=== PATIENT | male | born 1950 | race Caucasian/White ===

== ENCOUNTER → 2016-07-15 | Outpatient (CLI) | payer MEDICARE | LOC: RAD 15:55 | PROVIDERS: ATTEND Family Medicine | DX: S22.31XA Fracture of one rib, right side, initial encounter for closed fracture (principal); X58.XXXA Exposure to other specified factors, initial encounter ==

== ENCOUNTER → 2016-08-24 | Outpatient (CLI) | payer MEDICARE ==
--- NOTE | 2016-08-27 16:06 | EEG PRO FEE REPORT ---
EEG INTERPRETATION PATIENT NAME: ARY YANEZ ROOM#: ORDER#: [id number] DATE OF STUDY: 08/26/2016 : 1950 REFERRING MD: CAPRICE ROMAN M.D. DIAGNOSIS: Convulsions REPORT This is a 16 channel EEG recording with a channel of EKG done during wakefulness, photic stimulation, and early stages of sleep. Moderate artifact seen from eye movement, muscle movement and EKG artifact. The background activity is 8-9 cycles per second, well formed and reactive alpha best seen in the posterior electrodes. Beta 18-22 cycles per second, intermittent, nonlocalized or sustained slower forms seen. Photic stimulation was administered and did not alter the tracing significantly. In early stages of sleep more generalized slowing noted. There were no definite epileptic form discharges. IMPRESSION This EEG is within normal limits although moderate artifact seen. INTERPRETING PHYSICIAN: CAROLYN HANSEN M.D. /: MTEFIDALMIS TT: [id number] ID: [id number] /: [id number] TD: [id number] JOB: [id number] cc:Anyi ELLER M.D. >
== END ==
LOC: NEURO 12:28
PROVIDERS: ATTEND Pediatrics
DX: R56.9 Unspecified convulsions (principal)
CPT/HCPCS: 95819

== ENCOUNTER → 2017-06-30 | Outpatient (CLI) | payer MEDICARE ==
--- NOTE | 2017-06-30 15:50 | RADIOLOGY REPORT (SQ) ---
EXAM DESCRIPTION: CT ABD/PELVIS COMBO COMPLETED DATE/TIME: 06/30/2017 3:31 pm REASON FOR STUDY: MICROSCOPIC HEMATURIA R31.29 OTHER MICROSCOPIC HEMATURIA COMPARISON: None. TECHNIQUE: CT scan of the abdomen and pelvis performed with and without intravenous contrast, and wi thout oral contrast. Contrasted imaging performed helical scanning technique and dynamic intravenous contrast injection. Images reviewed with lung, soft tissue, and bone windows. Reconstructed coronal a nd sagittal MPR images reviewed. Delayed images for evaluation of the urinary system also acquired. A ll images stored on PACS. All CT scanners at this facility use dose modulation, iterative reconstruction, and/or weight based d osing when appropriate to reduce radiation dose to as low as reasonably achievable (ALARA). [facility]: Dose Right [facility]: CareDose [facility]: Dose Right [facility]: Teradose 4D [facility]: Bloglovin CONTRAST TYPE AND DOSE: contrast/concentration: Isovue 370.00 mg/ml; Total Contrast Delivered: 80.0 ml; Total Saline Delivered: 55.0 ml RENAL FUNCTION: Creatinine 0.8 RADIATION DOSE: CT Rad equipment meets quality standard of care and radiation dose reduction techniq ues were employed. CTDIvol: 24.0 - 27.6 mGy. DLP: 3979 mGy-cm. . LIMITATIONS: Artifact from right hip arthroplasty. FINDINGS: NON-CONTRASTED IMAGING: No significant renal or bladder calcifications. No other significa nt organ calcifications. POST-CONTRASTED IMAGING: LOWER CHEST: Cardiomegaly. LIVER: Benign cysts. SPLEEN: Normal size. No focal lesions. PANCREAS: No masses. No significant calcifications. No adjacent inflammation or peripancreatic fluid collections. Pancreatic duct not dilated. GALLBLADDER: Surgically absent. ADRENAL GLANDS: No significant masses or asymmetry. RIGHT KIDNEY AND URETER: No solid masses. No significant calcifications. No hydronephrosis or hyd roureter. LEFT KIDNEY AND URETER: No solid masses. No significant calcifications. No hydronephrosis or hydr oureter. AORTA AND VESSELS: No aneurysm. No dissection. Renal arteries, SMA, celiac without stenosis. RETROPERITONEUM: No retroperitoneal adenopathy, hemorrhage or masses. BOWEL AND PERITONEAL CAVITY: Sigmoid diverticulosis. No ascites or free air. APPENDIX: Normal. PELVIS: No mass. No free fluid. Normal bladder. ABDOMINAL WALL: No masses. No hernias. BONES: No acute findings. OTHER: No other significant finding. IMPRESSION: No evidence of urinary tract stones or mass. No acute findings. TECHNICAL DOCUMENTATION: JOB ID: [id number] Quality ID # [id number]: Final reports with documentation of one or more dose reduction techniques (e.g., Au tomated exposure control, adjustment of the mA and/or kV according to patient size, use of iterative reconstruction technique) 2010 [employer]- All Rights Reserved Reading location - IP/workstation name: [email or web address]
== END ==
LOC: RAD 14:30
PROVIDERS: ATTEND Urology
DX: R31.29 Other microscopic hematuria (principal)
CPT/HCPCS: 74178; 82565

== ENCOUNTER 2018-03-08 19:44 | Inpatient (IN) | payer MEDICARE ==
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
[2018-03-08] MEDS ORDERED: MORPHINE SULFATE 10 MG/ML INJ IV ONE ×2 (21:25→23:47)
[2018-03-08] MEDS ORDERED: NORMAL SALINE 1000 ML 1,000 ML IV ONE (21:25)
[2018-03-08] MEDS ORDERED: LINEZOLID 600 MG/300 ML RTUPB IV ONE (21:42)
[2018-03-08 22:12] LABS: ABSOLUTE EOSINOPHILS # (AUTO) 0.2 10^3/uL (0.0-0.6); ABSOLUTE LYMPHOCYTES (AUTO) 2.2 10^3/uL (0.5-4.7); ABSOLUTE MONOCYTES (AUTO) 0.7 10^3/uL (0.1-1.4); BASOPHILS % (AUTO) 0.4 % (0-2); EOSINOPHILS % (AUTO) 2.1 % (0-6); HEMATOCRIT 31.7 % (37.9-51.0); HEMOGLOBIN 10.2 g/dL (13.5-17.0); LYMPHOCYTES % (AUTO) 19.5 % (13-45); MEAN CORPUSCULAR HEMOGLOBIN 23.1 pg (27.0-33.4); MEAN CORPUSCULAR HGB CONC 32.3 g/dL (32.0-36.0); MEAN CORPUSCULAR VOLUME 72 fl (80-97); MONOCYTES % (AUTO) 6.6 % (3-13); PLATELET COUNT 492 10^3/uL (150-450); RED BLOOD COUNT 4.42 10^6/uL (4.35-5.55); RED CELL DISTRIBUTION WIDTH 17.7 % (11.5-14.0); SEGMENTED NEUTROPHILS % (AUTO) 71.4 % (42-78); TOTAL CELLS COUNTED % (AUTO) 100 %; WHITE BLOOD COUNT 11.3 10^3/uL (4.0-10.5)
[2018-03-08 22:30] LABS: ALANINE AMINOTRANSFERASE 31 U/L (21-72); ALBUMIN 4.2 g/dL (3.5-5.0); ALKALINE PHOSPHATASE 111 U/L (38-126); ANION GAP 13 (5-19); ASPARTATE AMINO TRANSFERASE 26 U/L (17-59); BILIRUBIN,DIRECT 0.2 mg/dL (0.0-0.4); BILIRUBIN,TOTAL 0.2 mg/dL (0.2-1.3); BLOOD UREA NITROGEN 10 mg/dL (7-20); CARBON DIOXIDE 28 mmol/L (22-30); CHLORIDE 101 mmol/L (98-107); CREATINE KINASE 128 U/L (55-170); GLUCOSE 99 mg/dL (75-110); POTASSIUM 4.9 mmol/L (3.6-5.0); SODIUM 141.5 mmol/L (137-145); TOTAL PROTEIN 7.6 g/dL (6.3-8.2)
--- NOTE | 2018-03-08 22:36 | RADIOLOGY REPORT (SQ) ---
EXAM DESCRIPTION: XR KNEE 1-2 VIEWS COMPLETED DATE/TME: 03/08/2018 21:25 CLINICAL HISTORY: 68 years Male, Fall COMPARISON: None. Findings: Moderate left knee effusion. Atherosclerosis. Bones, joints, and soft tissues of the LEFT XR KNEE 2 VIEWS appear otherwise intact. IMPRESSION: Moderate left knee effusion.
--- NOTE | 2018-03-08 22:39 | RADIOLOGY REPORT (SQ) ---
EXAM DESCRIPTION: XR KNEE 1-2 VIEWS COMPLETED DATE/TME: 03/08/2018 21:25 CLINICAL HISTORY: 68 years Male, Fall COMPARISON: None. Findings: Moderate right knee effusion. 1.1 cm loose body of the posterior knee joint. Atherosclerosis. Bones, joints, and soft tissues of the RIGHT XR KNEE 2 VIEWS appear otherwise intact. IMPRESSION: Moderate right knee effusion. 1.1 cm loose body of the posterior knee joint.
[2018-03-09] MEDS ORDERED: KETOROLAC TROMETHAMINE INJ/PF 30 MG/1 ML SDV IV ONE (00:36)
[2018-03-09] MEDS ORDERED: MAG HYDROX/AL HYDROX/SIMETH SUSP 30 ML UDCUP PO PRN (03:08)
[2018-03-09] MEDS ORDERED: ACETAMINOPHEN 325 MG TABLET PO PRN (03:08)
[2018-03-09] MEDS ORDERED: IPRATROPIUM/ALBUTEROL 0.5-2.5 MG/3 ML AMPUL NEB PRN (03:08)
[2018-03-09] MEDS ORDERED: NORMAL SALINE 1000 ML 1,000 ML IV PRN (03:15)
[2018-03-09] MEDS: OXYCODONE-ACETAMINOPHEN 5-325 MG TABLET PO PRN ×5 (04:48→23:36)
[2018-03-09] MEDS: KETOROLAC TROMETHAMINE INJ/PF 30 MG/1 ML SDV IV PRN ×3 (06:49→22:41)
[2018-03-09 06:55] LABS: ABSOLUTE BASOPHILS # (AUTO) 0.1 10^3/uL (0.0-0.2); ABSOLUTE EOSINOPHILS # (AUTO) 0.2 10^3/uL (0.0-0.6); ABSOLUTE LYMPHOCYTES (AUTO) 1.9 10^3/uL (0.5-4.7); ABSOLUTE MONOCYTES (AUTO) 0.9 10^3/uL (0.1-1.4); ABSOLUTE NEUT (AUTO) 6.4 10^3/uL (1.7-8.2); BASOPHILS % (AUTO) 0.7 % (0-2); EOSINOPHILS % (AUTO) 2.3 % (0-6); HEMATOCRIT 29.3 % (37.9-51.0); HEMOGLOBIN 9.4 g/dL (13.5-17.0); MEAN CORPUSCULAR HEMOGLOBIN 22.9 pg (27.0-33.4); MEAN CORPUSCULAR HGB CONC 32.2 g/dL (32.0-36.0); MEAN CORPUSCULAR VOLUME 71 fl (80-97); MONOCYTES % (AUTO) 9.3 % (3-13); PLATELET COUNT 437 10^3/uL (150-450); RED CELL DISTRIBUTION WIDTH 18.3 % (11.5-14.0); SEGMENTED NEUTROPHILS % (AUTO) 67.7 % (42-78); TOTAL CELLS COUNTED % (AUTO) 100 %; WHITE BLOOD COUNT 9.5 10^3/uL (4.0-10.5)
[2018-03-09] MEDS: HEPARIN SOD (PORCINE) 5,000 UNIT/ML 1 ML SYRINGE SUBCUT SCH ×3 (07:00→22:41)
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
[2018-03-09] MEDS: IPRATROPIUM/ALBUTEROL 0.5-2.5 MG/3 ML AMPUL NEB SCH ×2 (07:45→20:45)
--- NOTE | 2018-03-09 09:35 | EKG REPORT ---
SEVERITY:- NORMAL ECG - SINUS RHYTHM : Confirmed by: Adonay Anaya 09-Mar-2018 09:33:29
--- NOTE | 2018-03-09 10:00 | XCELERA REPORT ---
[address] [address] Lower Extremity Venous Evaluation Procedure: Color flow and duplex imaging of the veins of the right lower extremity as well as the left Common Femoral vein. Right Sided Venous Evaluation Subcutaneous lucencies noted. Normal vessel filling wall to wall, compression and augmentation as well as Colour flow down to the infrageniculate veins. Left Sided Venous Evaluation The left common femoral vein is fully compressible. Spontaneous and phasic flow is present in the left common femoral vein. Interpretation Summary No duplex evidence of DVT or obstruction in the right lower extremity nor in the left Common Femoral vein. Subcutaneous edema noted on the right leg. Name: ARY YANEZ Age: 68 yrs Gender: Male : 1950 Patient Status: Emergency Patient Location: ER Study Date: 03/08/2018 09:37 PM Reason For Study: Right leg swelling Ordering Physician: MEENU MANJARREZ Performed By: Torie Manuel : MEENU MANJARREZ > Joel Baires
[2018-03-09] MEDS: TIOTROPIUM BROMIDE DPI 5 CAP/KIT (18 MCG/CAP) IH SCH (11:08)
[2018-03-09] MEDS: FERROUS SULFATE 325 MG TABLET PO SCH ×2 (11:09→18:45)
[2018-03-09] MEDS: LINEZOLID 600 MG/300 ML RTUPB IV SCH ×2 (11:11→22:42)
[2018-03-09] MEDS: LAMOTRIGINE 100 MG TABLET PO SCH ×2 (11:24→18:44)
--- NOTE | 2018-03-09 17:06 | XCELERA REPORT ---
[address] [address] Lower Extremity Arterial Evaluation Name: ARY YANEZ Age: 68 yrs Gender: Male : 1950 Patient Status: [facility]: 03/09/2018 01:35 PM Procedure: A color flow and duplex scan of the lower extremity arteries was performed on the right with velocity and waveform anaylsis. 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 Velocities normal, except for step up in Peak systolic velocity suggesting less than 50% stenosis at the Proximal Femoral and Popliteal. Biphasic Posterior tibial and Dorsalis Pedis Tibial with normal velocity. Mild spectral broadening noted, throughout. Anterior Tibial artery not well seen due to edema. Ankle Brachial index not done due to presence of wound.. Left Side Arterial Evaluation Isolated check of Dorsalis Pedis shows Triphasic waveform, normal velocity. Interpretation Summary Mild hemodynamically significant lesions in the right lower extremity only, on duplex imaging, at rest. : CHANELL RAYMUNDO > Joel Bairse
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
[2018-03-09] MEDS ORDERED: TAMSULOSIN HCL 0.4 MG CAP.SR.24H PO SCH ×2 (22:00)
[2018-03-09] MEDS: TAMSULOSIN HCL 0.4 MG CAP.SR.24H PO SCH (22:41)
[2018-03-09] MEDS: AMLODIPINE BESYLATE 10 MG TABLET PO SCH (22:41)
[2018-03-09] MEDS: ATORVASTATIN CALCIUM 10 MG TABLET PO SCH (22:41)
[2018-03-10] MEDS: OXYCODONE-ACETAMINOPHEN 5-325 MG TABLET PO PRN ×4 (03:39→20:08)
[2018-03-10] MEDS: HEPARIN SOD (PORCINE) 5,000 UNIT/ML 1 ML SYRINGE SUBCUT SCH ×3 (05:31→23:02)
[2018-03-10] MEDS: KETOROLAC TROMETHAMINE INJ/PF 30 MG/1 ML SDV IV PRN ×2 (05:31→15:20)
[2018-03-10 05:33] LABS: ABSOLUTE BASOPHILS # (AUTO) 0.1 10^3/uL (0.0-0.2); ABSOLUTE EOSINOPHILS # (AUTO) 0.3 10^3/uL (0.0-0.6); ABSOLUTE LYMPHOCYTES (AUTO) 2.6 10^3/uL (0.5-4.7); ABSOLUTE MONOCYTES (AUTO) 0.7 10^3/uL (0.1-1.4); ABSOLUTE NEUT (AUTO) 4.7 10^3/uL (1.7-8.2); BASOPHILS % (AUTO) 0.7 % (0-2); HEMATOCRIT 28.4 % (37.9-51.0); HEMOGLOBIN 9.2 g/dL (13.5-17.0); LYMPHOCYTES % (AUTO) 30.6 % (13-45); MEAN CORPUSCULAR HEMOGLOBIN 23.2 pg (27.0-33.4); MEAN CORPUSCULAR HGB CONC 32.5 g/dL (32.0-36.0); MEAN CORPUSCULAR VOLUME 71 fl (80-97); MONOCYTES % (AUTO) 8.2 % (3-13); PLATELET COUNT 418 10^3/uL (150-450); RED BLOOD COUNT 3.97 10^6/uL (4.35-5.55); RED CELL DISTRIBUTION WIDTH 17.9 % (11.5-14.0); SEGMENTED NEUTROPHILS % (AUTO) 56.5 % (42-78); TOTAL CELLS COUNTED % (AUTO) 100 %; WHITE BLOOD COUNT 8.4 10^3/uL (4.0-10.5)
[2018-03-10 05:54] LABS: ANION GAP 12 (5-19); BLOOD UREA NITROGEN 13 mg/dL (7-20); CARBON DIOXIDE 27 mmol/L (22-30); CHLORIDE 102 mmol/L (98-107); GLUCOSE 120 mg/dL (75-110); POTASSIUM 4.4 mmol/L (3.6-5.0); SODIUM 141.3 mmol/L (137-145)
[2018-03-10] MEDS: IPRATROPIUM/ALBUTEROL 0.5-2.5 MG/3 ML AMPUL NEB SCH ×2 (08:08→20:37)
[2018-03-10] MEDS ORDERED: HYDROMORPHONE HCL INJ/PF 2 MG/ML AMPULE IV PRN ×2 (08:19→09:56)
[2018-03-10] MEDS: LINEZOLID 600 MG/300 ML RTUPB IV SCH ×2 (09:37→23:02)
[2018-03-10] MEDS: LAMOTRIGINE 100 MG TABLET PO SCH ×2 (09:37→17:05)
[2018-03-10] MEDS: FERROUS SULFATE 325 MG TABLET PO SCH ×2 (09:37→17:05)
[2018-03-10] MEDS: TIOTROPIUM BROMIDE DPI 5 CAP/KIT (18 MCG/CAP) IH SCH (09:38)
[2018-03-10] MEDS: LIDOCAINE 5% (700 MG) TRANSDERMAL ADH..PATCH TP SCH (15:20)
[2018-03-10] MEDS: HYDROMORPHONE HCL INJ/PF 2 MG/ML AMPULE IV PRN ×2 (16:57→23:55)
--- NOTE | 2018-03-10 17:27 | PDOC PROGRESS REPORT ---
Subjective Progress Note for:: 03/10/18 Subjective:: Patient has been given some IV drugs and right now is a bit confused. Was attempted to go to get the MRI but has significant pain so patient being premedicated and will be taken downstairs for MRI in the next hour Reason For Visit: RIGHT LEG CELLULITIS RIGHT LOWER EXTREMITY Physical Exam Vital Signs: Temp Pulse Resp BP Pulse Ox 36.7 C 81 20 115/72 92 03/10/18 13:24 03/10/18 13:24 03/10/18 13:24 03/10/18 13:24 03/10/18 13:24 Intake & Output 03/09/18 03/10/18 03/11/18 06:59 06:59 06:59 Intake Total 1472 300 Output Total 900 Balance 572 300 Weight 111.9 kg Adult Front & Back Image: 1 - Patient has wrapping of his right lower extremity for his chronic venous ulcer with serous drainage. Continues to have pain with attempted range of motion of the knee and internal/external rotation of the knee. He has global tenderness about the medial anterior and lateral aspect of the knee. Unable to do any ligament exam due to the amount of pain. Continues to have significant swelling may be consistent with an effusion. Slight warmth to it with no erythema of the knee. Results Laboratory Results: 03/10/18 04:23 03/10/18 04:23 03/10/18 03/10/18 04:23 04:23 WBC 8.4 RBC 3.97 L Hgb 9.2 L Hct 28.4 L MCV 71 L MCH 23.2 L MCHC 32.5 RDW 17.9 H Plt Count 418 Seg Neutrophils % 56.5 Lymphocytes % 30.6 Monocytes % 8.2 Eosinophils % 4.0 Basophils % 0.7 Absolute Neutrophils 4.7 Absolute Lymphocytes 2.6 Absolute Monocytes 0.7 Absolute Eosinophils 0.3 Absolute Basophils 0.1 Sodium 141.3 Potassium 4.4 Chloride 102 Carbon Dioxide 27 Anion Gap 12 BUN 13 Creatinine 0.75 Est GFR ( Amer) > 60 Est GFR (Non-Af Amer) > 60 Glucose 120 H Calcium 9.0 Impressions: Knee X-Ray 03/08/18 21:25 IMPRESSION: Moderate right knee effusion. 1.1 cm loose body of the posterior knee joint. Assessment & Plan - Diagnosis (1) Loose body in knee, right knee Is this a current diagnosis for this admission?: Yes Plan: 68-year-old gentleman with mechanical fall with significant pain and swelling of the right knee. Still awaiting pacing any obtaining an MRI today to further investigate. There is no fractures on x-rays. May consider aspiration of the right knee depending what the MRI reports show.
--- NOTE | 2018-03-10 18:55 | RADIOLOGY REPORT (SQ) ---
MR LOWER EXTREMITY JOINT WITHOUT IV CONTRAST HISTORY: Intractable right knee pain and swelling s/p fall COMPARISON: None. TECHNIQUE: Multiplanar, multisequence MR imaging of the right knee was performed without the administration of intravenous gadolinium. FINDINGS: The anterior and posterior cruciate ligaments are intact, as are the medial and lateral collateral ligament complexes and the insertion of the popliteus tendon. There is no meniscal tear. The capsular attachments are intact. The articular cartilage over the tibiofemoral and patellofemoral joints are maintained, without prominent fibrillation or fissuring. The extensor mechanism is maintained. The suprapatellar and infrapatellar fat pads are normal. There are multiple T1 hypointense fracture lines within the lateral tibial plateau extending to the lateral aspect of the medial tibial plateau, consistent with acute nondisplaced and moderately comminuted fracture. There is an additional nondisplaced fracture of the fibular head. There is also abnormal signal in the lateral femoral condyle without a definite fracture line seen, suggesting a bone marrow contusion. A large lipohemarthrosis is present. There is also diffuse subcutaneous edema surrounding the right knee. IMPRESSION: 1. Acute nondisplaced, comminuted fracture of the lateral tibial plateau extending to the medial tibial plateau. 2. Acute nondisplaced fracture of the fibular head. 3. Large lipohemarthrosis. 4. No meniscal tear or ligamentous injury.
--- NOTE | 2018-03-10 20:34 | PDOC PROGRESS REPORT ---
Subjective Progress Note for:: 03/10/18 Subjective:: MS. YANEZ is a 68 year old male with a history of chronic right leg ulcer with venous stasis, chronic back and hip pain who complains of increasing right lower extremity pain and sustained a fall at home. No acute event overnight. Patient says that he continues to have right knee and right leg pain which was not relieved by oxygen he is on Toradol. He did get some relief from IV Dilaudid patient does have chronic opiate dependence. Reason For Visit: RIGHT LEG CELLULITIS RIGHT LOWER EXTREMITY Physical Exam Vital Signs: Temp Pulse Resp BP Pulse Ox 98.3 F 81 14 128/66 H 93 03/10/18 18:00 03/10/18 18:00 03/10/18 18:00 03/10/18 18:00 03/10/18 18:00 Intake & Output 03/09/18 03/10/18 03/11/18 06:59 06:59 06:59 Intake Total 1472 921 Output Total 900 250 Balance 572 671 Weight 246 lb 11.156 oz General appearance: PRESENT: no acute distress, obese Eye exam: PRESENT: conjunctiva pink, EOMI, PERRLA. ABSENT: scleral icterus Ear exam: PRESENT: normal external ear exam Mouth exam: PRESENT: moist, tongue midline Neck exam: ABSENT: carotid bruit, JVD, lymphadenopathy, thyromegaly Respiratory exam: PRESENT: clear to auscultation fitz. ABSENT: rales, rhonchi, wheezes Cardiovascular exam: PRESENT: RRR. ABSENT: diastolic murmur, rubs, systolic murmur Pulses: PRESENT: normal dorsalis pedis pul GI/Abdominal exam: PRESENT: normal bowel sounds, soft. ABSENT: distended, guarding, mass, organolmegaly, rebound, tenderness Rectal exam: PRESENT: deferred Extremities exam: PRESENT: other - Note of stage II chronic right leg ulcer with weeping Neurological exam: PRESENT: alert, awake, oriented to person, oriented to place , oriented to time, oriented to situation, CN II-XII grossly intact. ABSENT: motor sensory deficit Psychiatric exam: PRESENT: appropriate affect, normal mood. ABSENT: homicidal ideation, suicidal ideation Results Laboratory Results: 03/10/18 04:23 03/10/18 04:23 03/10/18 03/10/18 04:23 04:23 WBC 8.4 RBC 3.97 L Hgb 9.2 L Hct 28.4 L MCV 71 L MCH 23.2 L MCHC 32.5 RDW 17.9 H Plt Count 418 Seg Neutrophils % 56.5 Lymphocytes % 30.6 Monocytes % 8.2 Eosinophils % 4.0 Basophils % 0.7 Absolute Neutrophils 4.7 Absolute Lymphocytes 2.6 Absolute Monocytes 0.7 Absolute Eosinophils 0.3 Absolute Basophils 0.1 Sodium 141.3 Potassium 4.4 Chloride 102 Carbon Dioxide 27 Anion Gap 12 BUN 13 Creatinine 0.75 Est GFR ( Amer) > 60 Est GFR (Non-Af Amer) > 60 Glucose 120 H Calcium 9.0 Impressions: Knee X-Ray 03/08/18 21:25 IMPRESSION: Moderate right knee effusion. 1.1 cm loose body of the posterior knee joint. Lower Extremity MRI 03/10/18 00:00 IMPRESSION: 1. Acute nondisplaced, comminuted fracture of the lateral tibial plateau extending to the medial tibial plateau. 2. Acute nondisplaced fracture of the fibular head. 3. Large lipohemarthrosis. 4. No meniscal tear or ligamentous injury. Assessment & Plan - Diagnosis (1) Cellulitis of right leg Is this a current diagnosis for this admission?: Yes Plan: Ultrasound duplex are negative for DVT. On daptomycin. Will (2) Right knee pain Is this a current diagnosis for this admission?: Yes Plan: X-rays did not show fracture but does show right knee effusion. Orthopedics was consulted and MRI has been ordered.
[2018-03-10] MEDS: TAMSULOSIN HCL 0.4 MG CAP.SR.24H PO SCH (23:02)
[2018-03-10] MEDS: AMLODIPINE BESYLATE 10 MG TABLET PO SCH (23:02)
[2018-03-10] MEDS: ATORVASTATIN CALCIUM 10 MG TABLET PO SCH (23:03)
[2018-03-11] MEDS: OXYCODONE-ACETAMINOPHEN 5-325 MG TABLET PO PRN ×4 (02:09→21:49)
[2018-03-11] MEDS: HEPARIN SOD (PORCINE) 5,000 UNIT/ML 1 ML SYRINGE SUBCUT SCH ×3 (05:36→21:49)
[2018-03-11] MEDS: HYDROMORPHONE HCL INJ/PF 2 MG/ML AMPULE IV PRN ×3 (05:44→19:38)
[2018-03-11] MEDS: IPRATROPIUM/ALBUTEROL 0.5-2.5 MG/3 ML AMPUL NEB SCH ×2 (07:50→19:27)
[2018-03-11] MEDS: KETOROLAC TROMETHAMINE INJ/PF 30 MG/1 ML SDV IV PRN ×2 (07:53→15:44)
[2018-03-11] MEDS: FERROUS SULFATE 325 MG TABLET PO SCH ×2 (09:11→17:08)
[2018-03-11] MEDS: LAMOTRIGINE 100 MG TABLET PO SCH ×2 (09:11→17:08)
[2018-03-11] MEDS: LIDOCAINE 5% (700 MG) TRANSDERMAL ADH..PATCH TP SCH (09:11)
[2018-03-11] MEDS: LINEZOLID 600 MG/300 ML RTUPB IV SCH ×2 (09:11→21:49)
[2018-03-11] MEDS: TIOTROPIUM BROMIDE DPI 5 CAP/KIT (18 MCG/CAP) IH SCH (09:12)
--- NOTE | 2018-03-11 17:38 | PDOC PROGRESS REPORT ---
Subjective Progress Note for:: 03/11/18 Subjective:: Patient continues to complain of pain in his right boot. Has not seen significant improvement with current narcotics. Once again date of injury was 03/08/18 when he sustained a fall onto his bilateral knees since then he has been unable to weight-bear. Has significant pain with motion. Pain 10/10. Reason For Visit: RIGHT LEG CELLULITIS RIGHT LOWER EXTREMITY Physical Exam Vital Signs: Temp Pulse Resp BP Pulse Ox 98.5 F 77 14 120/66 92 03/11/18 16:19 03/11/18 16:19 03/11/18 16:19 03/11/18 16:19 03/11/18 16:19 Intake & Output 03/10/18 03/11/18 03/12/18 06:59 06:59 06:59 Intake Total 1472 1221 566 Output Total 900 250 250 Balance 572 971 316 Weight 111.9 kg 111.9 kg Musculoskeletal exam: PRESENT: other - Right knee: Tenderness to palpation of the medial lateral tibial plateau. No suprapatellar tenderness. Pain with any attempted range of motion. Compartments soft and compressible no sign of compartment syndrome. Intact plantar flexion/dorsiflexion. Erythema with stasis dermatitis and chronic wound along the lateral aspect of the distal lower extremity. Cap refill less than 2 seconds. Results Laboratory Results: 03/10/18 04:23 03/10/18 04:23 Impressions: Knee X-Ray 03/08/18 21:25 IMPRESSION: Moderate right knee effusion. 1.1 cm loose body of the posterior knee joint. Lower Extremity MRI 03/10/18 00:00 IMPRESSION: 1. Acute nondisplaced, comminuted fracture of the lateral tibial plateau extending to the medial tibial plateau. 2. Acute nondisplaced fracture of the fibular head. 3. Large lipohemarthrosis. 4. No meniscal tear or ligamentous injury. Status: Image reviewed by me - I have reviewed patient's MRI which is consistent with nondisplaced lateral and tibial plateau fracture with associated lipohemarthrosis secondary to the fracture. Assessment & Plan - Diagnosis (1) Tibial plateau fracture, right Qualifiers: Encounter type: initial encounter Fracture type: closed Qualified Code(s) : S82.141A - Displaced bicondylar fracture of right tibia, initial encounter for closed fracture Is this a current diagnosis for this admission?: Yes Plan: Patient sustained a nondisplaced tibial plateau fracture. Unfortunately given his chronic wound it does complicate immobilization and ability to ambulate due to concerns of possible skin breakdown and wound issues. After discussing options with the patient and family I feel the best option is likely knee immobilizer when he attempts to get out of bed with careful padding of the bony prominences. I then remove the knee immobilizer when in bed. We will see how he progresses with this. Will likely require penitentiary facility.
--- NOTE | 2018-03-11 18:06 | PDOC PROGRESS REPORT ---
Subjective Progress Note for:: 03/11/18 Subjective:: MS. YANEZ is a 68 year old male with a history of chronic right leg ulcer with venous stasis, chronic back and hip pain who complains of increasing right lower extremity pain and sustained a fall at home. He also complains of increasing redness and weeping on his chronic right leg wound. Initial x-ray imaging did not show fractures breath MRI ordered by orthopedics showed a nondisplaced right fibular head fracture. No acute event overnight. Patient says that he has right knee and right leg pain but this has improved after adjusting his pain regimen. Reason For Visit: RIGHT LEG CELLULITIS RIGHT LOWER EXTREMITY Physical Exam Vital Signs: Temp Pulse Resp BP Pulse Ox 98.5 F 77 14 120/66 92 03/11/18 16:19 03/11/18 16:19 03/11/18 16:19 03/11/18 16:19 03/11/18 16:19 Intake & Output 03/10/18 03/11/18 03/12/18 06:59 06:59 06:59 Intake Total 1472 1221 566 Output Total 900 250 250 Balance 572 971 316 Weight 246 lb 11.156 oz 246 lb 11.156 oz General appearance: PRESENT: no acute distress, obese Eye exam: PRESENT: conjunctiva pink, EOMI, PERRLA. ABSENT: scleral icterus Ear exam: PRESENT: normal external ear exam Mouth exam: PRESENT: moist, tongue midline Neck exam: ABSENT: carotid bruit, JVD, lymphadenopathy, thyromegaly Respiratory exam: PRESENT: clear to auscultation fitz. ABSENT: rales, rhonchi, wheezes Cardiovascular exam: PRESENT: RRR. ABSENT: diastolic murmur, rubs, systolic murmur Pulses: PRESENT: normal dorsalis pedis pul GI/Abdominal exam: PRESENT: normal bowel sounds, soft. ABSENT: distended, guarding, mass, organolmegaly, rebound, tenderness Rectal exam: PRESENT: deferred Extremities exam: PRESENT: other - Note of stage II large chronic right latero- posterior leg ulcer with weeping, no not actively draining discharge on ulcer aside from some weeping but dressing is noted to be soaked with yellowish drainage, there is mild surrounding erythema Neurological exam: PRESENT: alert, awake, oriented to person, oriented to place , oriented to time, oriented to situation, CN II-XII grossly intact. ABSENT: motor sensory deficit Results Laboratory Results: 03/10/18 04:23 03/10/18 04:23 Impressions: Knee X-Ray 03/08/18 21:25 IMPRESSION: Moderate right knee effusion. 1.1 cm loose body of the posterior knee joint. Lower Extremity MRI 03/10/18 00:00 IMPRESSION: 1. Acute nondisplaced, comminuted fracture of the lateral tibial plateau extending to the medial tibial plateau. 2. Acute nondisplaced fracture of the fibular head. 3. Large lipohemarthrosis. 4. No meniscal tear or ligamentous injury. Assessment & Plan - Diagnosis (1) Cellulitis of right leg Is this a current diagnosis for this admission?: Yes Plan: Ultrasound duplex are negative for DVT. Patient was started on daptomycin upon admission due to his allergies to vancomycin, clindamycin, penicillin and sulfa antibiotics. Will consult with ID for further antibiotic recommendations. Will also consult surgery for evaluation of chronic wound. (2) Acute nondisplaced right knee fracture Is this a current diagnosis for this admission?: Yes Plan: MRI did show a nondisplaced acute right fibular head fracture. Orthopedics has evaluated the patient and his recommend doing conservative treatment with the immobilizer. Physical therapy consult. He will likely need inpatient rehab. - Time Time Spent with patient: 15-24 minutes
[2018-03-11] MEDS: ATORVASTATIN CALCIUM 10 MG TABLET PO SCH (21:49)
[2018-03-11] MEDS: TAMSULOSIN HCL 0.4 MG CAP.SR.24H PO SCH (21:49)
[2018-03-11] MEDS: AMLODIPINE BESYLATE 10 MG TABLET PO SCH (21:49)
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
[2018-03-12] MEDS: HYDROMORPHONE HCL INJ/PF 2 MG/ML AMPULE IV PRN ×4 (01:02→20:24)
[2018-03-12] MEDS ORDERED: GUAIFENESIN SYRP 200 MG/10 ML UDC PO ONE (01:30)
[2018-03-12] MEDS ORDERED: FLUTICASONE NASAL SPRAY 50 MCG/SPRY 120 SPRAY/16 GM NASL ONE (01:30)
[2018-03-12] MEDS ORDERED: FLUTICASONE NASAL SPRAY 50 MCG/SPRY 120 SPRAY/16 GM ONE (03:04)
[2018-03-12] MEDS: HEPARIN SOD (PORCINE) 5,000 UNIT/ML 1 ML SYRINGE SUBCUT SCH ×3 (05:23→23:19)
[2018-03-12] MEDS ORDERED: ASPIRIN 81 MG TABLET, CHEWABLE PO ONE (05:46)
--- NOTE | 2018-03-12 06:41 | RADIOLOGY REPORT (SQ) ---
EXAM DESCRIPTION: XR CHEST 1 VIEW COMPLETED DATE/TME: 03/12/2018 00:00 CLINICAL HISTORY: 68 years Male, chest pain COMPARISON: None. NUMBER OF VIEWS/TECHNIQUE: 1/AP FINDINGS: Adequate lung volume, small streaky opacity of the left lung base, small obscuration-effusion of the right costophrenic angle, normal cardiac silhouette, and intact bony thorax. IMPRESSION: Small left basilar pneumonia/atelectasis. Small right effusion/atelectasis.
[2018-03-12 07:19] LABS: CREATINE KINASE MB 1.34 ng/mL (<4.55)
[2018-03-12 07:27] LABS: TROPONIN I < 0.012 ng/mL
[2018-03-12] MEDS: IPRATROPIUM/ALBUTEROL 0.5-2.5 MG/3 ML AMPUL NEB SCH ×2 (07:40→19:16)
[2018-03-12] MEDS: OXYCODONE-ACETAMINOPHEN 5-325 MG TABLET PO PRN ×3 (10:21→23:30)
--- NOTE | 2018-03-12 10:48 | EKG REPORT ---
SEVERITY:- OTHERWISE NORMAL ECG - SINUS ARRHYTHMIA, RATE 70-98 : Confirmed by: Adonay Anaya 12-Mar-2018 10:47:17
[2018-03-12] MEDS: KETOROLAC TROMETHAMINE INJ/PF 30 MG/1 ML SDV IV PRN (10:50)
[2018-03-12] MEDS: GUAIFENESIN SYRP 200 MG/10 ML UDC PO SCH ×2 (11:07→17:47)
[2018-03-12] MEDS: FLUTICASONE NASAL SPRAY 50 MCG/SPRY 120 SPRAY/16 GM NASL SCH (11:08)
[2018-03-12] MEDS: LINEZOLID 600 MG/300 ML RTUPB IV SCH ×2 (11:09→23:19)
[2018-03-12] MEDS: LAMOTRIGINE 100 MG TABLET PO SCH ×2 (11:09→17:47)
[2018-03-12] MEDS: FERROUS SULFATE 325 MG TABLET PO SCH ×2 (11:09→17:47)
[2018-03-12] MEDS: LIDOCAINE 5% (700 MG) TRANSDERMAL ADH..PATCH TP SCH (11:09)
[2018-03-12] MEDS: TIOTROPIUM BROMIDE DPI 5 CAP/KIT (18 MCG/CAP) IH SCH (11:09)
--- NOTE | 2018-03-12 12:12 | PDOC PROGRESS REPORT ---
Subjective Subjective:: Patient continues to complain of pain in his right leg. Has not seen significant improvement with current narcotics. Once again date of injury was 03/08/18 when he sustained a fall onto his bilateral knees since then he has been unable to weight-bear. Has significant pain with motion. Pain 10/10. Would like to try the knee immobilizer while in bed as well. Reason For Visit: RIGHT LEG CELLULITIS RIGHT LOWER EXTREMITY Physical Exam Vital Signs: Temp Pulse Resp BP Pulse Ox 98.7 F 76 18 110/58 L 98 03/12/18 07:23 03/12/18 07:42 03/12/18 07:42 03/12/18 07:23 03/12/18 07:42 Intake & Output 03/11/18 03/12/18 03/13/18 06:59 06:59 06:59 Intake Total 1221 1718 Output Total 250 1050 Balance 971 668 Weight 111.9 kg 111.9 kg Musculoskeletal exam: PRESENT: other - Right lower extremity: Tenderness along the medial/lateral tibial plateau. Mild swelling and effusion. Compartments soft and compressible no sign of compartment syndrome. Intact plantar flexion/ dorsiflexion. Right lower extremity wound with dressing in place Results Laboratory Results: 03/10/18 04:23 03/10/18 04:23 03/12/18 03/12/18 06:07 06:07 Creatine Kinase 57 CK-MB (CK-2) 1.34 Troponin I < 0.012 Impressions: Knee X-Ray 03/08/18 21:25 IMPRESSION: Moderate right knee effusion. 1.1 cm loose body of the posterior knee joint. Lower Extremity MRI 03/10/18 00:00 IMPRESSION: 1. Acute nondisplaced, comminuted fracture of the lateral tibial plateau extending to the medial tibial plateau. 2. Acute nondisplaced fracture of the fibular head. 3. Large lipohemarthrosis. 4. No meniscal tear or ligamentous injury. Chest X-Ray 03/12/18 00:00 IMPRESSION: Small left basilar pneumonia/atelectasis. Small right effusion/atelectasis. Assessment & Plan - Diagnosis (1) Tibial plateau fracture, right Qualifiers: Encounter type: initial encounter Fracture type: closed Qualified Code(s) : S82.141A - Displaced bicondylar fracture of right tibia, initial encounter for closed fracture Is this a current diagnosis for this admission?: Yes Plan: Patient sustained a nondisplaced tibial plateau fracture. Unfortunately given his chronic wound it does complicate immobilization and ability to ambulate due to concerns of possible skin breakdown and wound issues. After discussing options with the patient and family I feel the best option is likely knee immobilizer originally suggested only when out of bed but patient would like to attempt while in bed as well to determine if it provides him any pain relief. Patient may follow-up as an outpatient with Dr. Castro
[2018-03-12 12:53] LABS: CREATINE KINASE MB 1.39 ng/mL (<4.55)
[2018-03-12 13:04] LABS: TROPONIN I < 0.012 ng/mL
--- NOTE | 2018-03-12 15:20 | PDOC PROGRESS REPORT ---
Subjective Progress Note for:: 03/12/18 Subjective:: MS. YANEZ is a 68 year old male with a history of chronic right leg ulcer with venous stasis, chronic back and hip pain who complains of increasing right lower extremity pain and sustained a fall at home. He also complains of increasing redness and weeping on his chronic right leg wound. Initial x-ray imaging did not show fractures but MRI ordered by orthopedics showed a nondisplaced right fibular head fracture. He had some transient chest discomfort overnight but no SOB. His right knee and right leg pain are fairly controlled after adjustment of his pain regimen. No fever or chills. Wound and leg assessed upon dressing change with RN today. There is slight improvement in the erythema on the right leg today with slight improvement of the swelling as well. Lesions have been delineated with marker to monitor improvement. Dressing appears slightly soaked with yellowish discharge but there is less weepage today. Reason For Visit: RIGHT LEG CELLULITIS RIGHT LOWER EXTREMITY Physical Exam Vital Signs: Temp Pulse Resp BP Pulse Ox 98.3 F 80 19 117/58 L 92 03/12/18 11:33 03/12/18 11:33 03/12/18 11:33 03/12/18 11:33 03/12/18 11:33 Intake & Output 03/11/18 03/12/18 03/13/18 06:59 06:59 06:59 Intake Total 1221 1718 300 Output Total 250 1050 Balance 971 668 300 Weight 246 lb 11.156 oz 246 lb 11.156 oz General appearance: PRESENT: no acute distress, obese Head exam: PRESENT: atraumatic, normocephalic Eye exam: PRESENT: conjunctiva pink, EOMI, PERRLA. ABSENT: scleral icterus Ear exam: PRESENT: normal external ear exam Mouth exam: PRESENT: moist, tongue midline Neck exam: ABSENT: carotid bruit, JVD, lymphadenopathy, thyromegaly Respiratory exam: PRESENT: clear to auscultation fitz. ABSENT: rales, rhonchi, wheezes Cardiovascular exam: PRESENT: RRR. ABSENT: diastolic murmur, rubs, systolic murmur Pulses: PRESENT: normal dorsalis pedis pul GI/Abdominal exam: PRESENT: normal bowel sounds, soft. ABSENT: distended, guarding, mass, organolmegaly, rebound, tenderness Rectal exam: PRESENT: deferred Musculoskeletal exam: PRESENT: other - There is slight improvement in the erythema on the right leg today with slight improvement of the swelling as well. Lesions have been delineated with marker to monitor improvement. Dressing appears slightly soaked with yellowish discharge but there is less weepage today. Neurological exam: PRESENT: alert, awake, oriented to person, oriented to place , oriented to time, oriented to situation, CN II-XII grossly intact. ABSENT: motor sensory deficit Results Laboratory Results: 03/10/18 04:23 03/10/18 04:23 03/12/18 03/12/18 03/12/18 06:07 06:07 11:52 Creatine Kinase 57 65 CK-MB (CK-2) 1.34 Troponin I < 0.012 03/12/18 11:52 Creatine Kinase CK-MB (CK-2) 1.39 Troponin I < 0.012 Impressions: Knee X-Ray 03/08/18 21:25 IMPRESSION: Moderate right knee effusion. 1.1 cm loose body of the posterior knee joint. Lower Extremity MRI 03/10/18 00:00 IMPRESSION: 1. Acute nondisplaced, comminuted fracture of the lateral tibial plateau extending to the medial tibial plateau. 2. Acute nondisplaced fracture of the fibular head. 3. Large lipohemarthrosis. 4. No meniscal tear or ligamentous injury. Chest X-Ray 03/12/18 00:00 IMPRESSION: Small left basilar pneumonia/atelectasis. Small right effusion/atelectasis. Assessment & Plan - Diagnosis (1) Cellulitis of right leg Is this a current diagnosis for this admission?: Yes Plan: Ultrasound duplex are negative for DVT. Patient was started on daptomycin upon admission due to his allergies to vancomycin, clindamycin, penicillin and sulfa antibiotics. ID consulted for further antibiotic recommendations. Surgery also consulted and has advised dressing recommendations. There is slight improvement in the erythema on the right leg today with slight improvement of the swelling as well. Lesions have been delineated with marker to monitor improvement. Dressing appears slightly soaked with yellowish discharge but there is less weepage today. Patient has multiple antibiotic allergies. No known allergies to fluoroquinolones but will discuss further antibiotic recommendations with ID tomorrow. (2) Acute nondisplaced right knee fracture Is this a current diagnosis for this admission?: Yes Plan: MRI did show a nondisplaced acute right fibular head fracture. Orthopedics has evaluated the patient and his recommend doing conservative treatment with the immobilizer. Physical therapy consult. Patient will need inpatient rehab/SNF. (3) Chest discomfort Is this a current diagnosis for this admission?: Yes Plan: Resolved. He described it as achy/sharp. EKG and troponins (x2) have been negative so far. 3rd troponin draw at 6 pm today. Continue aspirin. Will empirically start PPI. - Time Time Spent with patient: 25-34 minutes
[2018-03-12] MEDS: PANTOPRAZOLE SODIUM 40 MG VIAL IV SCH (15:42)
[2018-03-12 18:39] LABS: CREATINE KINASE MB 1.27 ng/mL (<4.55)
[2018-03-12 18:47] LABS: TROPONIN I < 0.012 ng/mL
--- NOTE | 2018-03-12 22:21 | EKG REPORT ---
SEVERITY:- BORDERLINE ECG - SINUS RHYTHM BORDERLINE INFERIOR Q WAVES : Confirmed by: Adonay Anaya 12-Mar-2018 22:19:48
[2018-03-12] MEDS: AMLODIPINE BESYLATE 10 MG TABLET PO SCH (23:19)
[2018-03-12] MEDS: TAMSULOSIN HCL 0.4 MG CAP.SR.24H PO SCH (23:19)
[2018-03-12] MEDS: ATORVASTATIN CALCIUM 10 MG TABLET PO SCH (23:19)
[2018-03-13] MEDS: KETOROLAC TROMETHAMINE INJ/PF 30 MG/1 ML SDV IV PRN ×4 (00:02→22:11)
[2018-03-13] MEDS: HYDROMORPHONE HCL INJ/PF 2 MG/ML AMPULE IV PRN (02:05)
[2018-03-13] MEDS: OXYCODONE-ACETAMINOPHEN 5-325 MG TABLET PO PRN ×4 (05:50→20:50)
[2018-03-13] MEDS: HEPARIN SOD (PORCINE) 5,000 UNIT/ML 1 ML SYRINGE SUBCUT SCH ×3 (05:50→22:04)
[2018-03-13] MEDS: IPRATROPIUM/ALBUTEROL 0.5-2.5 MG/3 ML AMPUL NEB SCH ×2 (08:26→19:53)
[2018-03-13] MEDS: FERROUS SULFATE 325 MG TABLET PO SCH ×2 (09:00→18:27)
[2018-03-13] MEDS: LAMOTRIGINE 100 MG TABLET PO SCH ×2 (09:01→18:27)
[2018-03-13] MEDS: LIDOCAINE 5% (700 MG) TRANSDERMAL ADH..PATCH TP SCH (09:01)
[2018-03-13] MEDS: FLUTICASONE NASAL SPRAY 50 MCG/SPRY 120 SPRAY/16 GM NASL SCH (09:01)
[2018-03-13] MEDS: GUAIFENESIN SYRP 200 MG/10 ML UDC PO SCH ×2 (09:02→18:27)
[2018-03-13] MEDS: PANTOPRAZOLE SODIUM 40 MG VIAL IV SCH (09:02)
[2018-03-13] MEDS: TIOTROPIUM BROMIDE DPI 5 CAP/KIT (18 MCG/CAP) IH SCH (09:02)
[2018-03-13] MEDS: LINEZOLID 600 MG/300 ML RTUPB IV SCH ×2 (09:02→21:58)
--- NOTE | 2018-03-13 16:31 | Progress Note ---
Provider Note Provider Note: ID Consult Note Asked to review patient's chart by Dr Powell. Pt not seen or examined. Reviewed VS , lab results, provider reports, imaging reports. Pt has PMH/PSH including R hip total arthoplasty, chronic venous stasis and edema. Pt is normally followed by [facility] for chronic lymphedema and R leg ulcer. Pt denied recent fever or chills prior to admission. He presented to [facility] ED on 03/08/18 with knee and hip pain R leg after he fell trying to get out of his vehicle. Pt had no fever. Exam was notable for edema R>L leg with skin changes c/w chronic venous stasis and erythema from the mid leg down to the ankle, a large venous stasis ulcer with serous drainage involving the lateral leg and ankle; knee swelling present, felt slightly warm but nonerythematous, and ROM painful. Labs were notable only for slight increase in WBCs 11.3, on presentation. Blood cultures obtained on admission are negative x 4d. Plain films of the knee showed a moderate R knee effusion. MRI this admission revealed acute nondisplaced comminuted fx of the lateral tibial plateau and acute nondisplaced fracture of the fibular head. Ultrasound duplex was negative for DVT. Orthopedics was consulted and recommended knee immobilizer. Most recently pt was appreciated as having slight improvement in erythema of the R leg with slight improvement in swelling as well. Pt has no cutaneous abscess, furuncles or carbuncles appreciated. Erythema has improved but not resolved. Pt has allergies noted in his chart to vancomycin, clindamycin, penicillins and sulfa drugs. The reaction to vancomycin was documented as "SOB, tachy." Pt has been receiving linezolid 600 mg BID since 03/09/18. Pt's home medications included prior levofloxacin, doxycycline, Keflex, and Bactrim. Impression/Recommendations RLE cellulitis - Pt noted to have nonpurulent cellulitis (no cutaneous abscess, furuncles, carbuncles) with unilateral increased swelling and erythema developing in the setting of chronic venous stasis and lymphedema. Can be difficult to differentiate from stasis dermatitis, but it is certainly plausible that the patient may have superimposed cellulitis with bacteria introduced with recent trauma to skin and abrasions. He has been receiving linezolid for the past 5 days with improvement in erythema but not yet resolution. - Antibiotic therapy for nonpurulent cellulitis should be aimed at beta- haemolytic Streptococci and MSSA; to this end, Keflex PO 500 mg QID would be a good choice to continue treatment, if pt does not report any prohibitive adverse effects when he took it in the past (e.g. angioedema, anaphylaxis, hives ). Otherwise, linezolid 600 mg BID PO could be continued instead. - Total duration of therapy depends upon response. Generally, if there is rapid improvement, there is no difference between a 5 day vs 10 day course. For the patient, he has already completed 5 days of linezolid but has had some slow response. In this case, continuing treatment to finish 7 or 10 days in total might be reasonable. - Attempting to improve venous stasis and lower extremity edema (elevation and compression) would be helpful to hasten improvement of current episode of cellulitis and reduce risk of recurrent cellulitis, if possible. Simone Morillo MD [facility] Infectious Diseases pager [phone]
--- NOTE | 2018-03-13 18:29 | PDOC PROGRESS REPORT ---
Subjective Progress Note for:: 03/13/18 Subjective:: MS. YANEZ is a 68 year old male with a history of chronic right leg ulcer with venous stasis, chronic back and hip pain who complains of increasing right lower extremity pain and sustained a fall at home. He also complains of increasing redness and weeping on his chronic right leg wound. Initial x-ray imaging did not show fractures but MRI ordered by orthopedics showed a nondisplaced right fibular head fracture. His right knee and right leg pain are fairly controlled after adjustment of his pain regimen. No fever or chills. Wound and leg assessed upon dressing change with RN again today. He did have slight improvement on the erythema and swelling. Lesions have not gone beyond markings. This morning, patient refused going to inpatient rehab but after working with PT this afternoon, he decided to proceed with going for inpatient rehab. Reason For Visit: RIGHT LEG CELLULITIS RIGHT LOWER EXTREMITY Physical Exam Vital Signs: Temp Pulse Resp BP Pulse Ox 98.4 F 87 18 127/71 H 91 L 03/13/18 12:55 03/13/18 12:55 03/13/18 12:55 03/13/18 12:55 03/13/18 12:55 Intake & Output 03/12/18 03/13/18 03/14/18 06:59 06:59 06:59 Intake Total 1718 1975 892 Output Total 1050 1035 Balance 668 940 892 Weight 246 lb 11.156 oz 245 lb 9.519 oz General appearance: PRESENT: no acute distress, obese Head exam: PRESENT: atraumatic, normocephalic Eye exam: PRESENT: conjunctiva pink, EOMI, PERRLA. ABSENT: scleral icterus Ear exam: PRESENT: normal external ear exam Mouth exam: PRESENT: moist, tongue midline Neck exam: ABSENT: carotid bruit, JVD, lymphadenopathy, thyromegaly Respiratory exam: PRESENT: clear to auscultation fitz. ABSENT: rales, rhonchi, wheezes Cardiovascular exam: PRESENT: RRR. ABSENT: diastolic murmur, rubs, systolic murmur Pulses: PRESENT: normal dorsalis pedis pul GI/Abdominal exam: PRESENT: normal bowel sounds, soft. ABSENT: distended, guarding, mass, organolmegaly, rebound, tenderness Rectal exam: PRESENT: deferred Musculoskeletal exam: PRESENT: other - slight improvement in the erythema on the right leg with slight improvement of the swelling as well. Neurological exam: PRESENT: alert, awake, oriented to person, oriented to place , oriented to time, oriented to situation, CN II-XII grossly intact. ABSENT: motor sensory deficit Results Laboratory Results: 03/10/18 04:23 03/10/18 04:23 03/12/18 03/12/18 03/12/18 06:07 06:07 11:52 Creatine Kinase 57 65 CK-MB (CK-2) 1.34 Troponin I < 0.012 03/12/18 03/12/18 03/12/18 11:52 18:06 18:06 Creatine Kinase 68 CK-MB (CK-2) 1.39 1.27 Troponin I < 0.012 < 0.012 Impressions: Knee X-Ray 03/08/18 21:25 IMPRESSION: Moderate right knee effusion. 1.1 cm loose body of the posterior knee joint. Lower Extremity MRI 03/10/18 00:00 IMPRESSION: 1. Acute nondisplaced, comminuted fracture of the lateral tibial plateau extending to the medial tibial plateau. 2. Acute nondisplaced fracture of the fibular head. 3. Large lipohemarthrosis. 4. No meniscal tear or ligamentous injury. Chest X-Ray 03/12/18 00:00 IMPRESSION: Small left basilar pneumonia/atelectasis. Small right effusion/atelectasis. Assessment & Plan - Diagnosis (1) Cellulitis of right leg Is this a current diagnosis for this admission?: Yes Plan: Ultrasound duplex are negative for DVT. Patient was started on daptomycin upon admission due to his allergies to vancomycin, clindamycin, penicillin and sulfa antibiotics. ID consulted for further antibiotic recommendations. Surgery also consulted and has advised dressing recommendations. There is slight improvement in the erythema on the right leg today with slight improvement of the swelling as well. Lesions have been delineated with marker to monitor improvement. Dressing appears slightly soaked with yellowish discharge but there is less weepage today. Patient has multiple antibiotic allergies but did tolerate Keflex well in the past. Discussed with Dr. Morillo who recommended switching Zyvox to Keflex PO. Patient did say he has taken Keflex before and did not have reactions. (2) Acute nondisplaced right knee fracture Is this a current diagnosis for this admission?: Yes Plan: MRI did show a nondisplaced acute right fibular head fracture. Orthopedics has evaluated the patient and has recommend doing conservative treatment with the immobilizer. Physical therapy consult. Patient will need inpatient rehab/SNF. (3) Chest discomfort Is this a current diagnosis for this admission?: Yes Plan: Resolved. EKG and troponins x3 have been negative. - Time Time Spent with patient: 15-24 minutes
[2018-03-13] MEDS: TAMSULOSIN HCL 0.4 MG CAP.SR.24H PO SCH (21:59)
[2018-03-13] MEDS: ATORVASTATIN CALCIUM 10 MG TABLET PO SCH (21:59)
[2018-03-13] MEDS: AMLODIPINE BESYLATE 10 MG TABLET PO SCH (21:59)
[2018-03-14] MEDS: CEPHALEXIN 500 MG CAPSULE PO SCH ×5 (00:51→23:07)
[2018-03-14] MEDS: OXYCODONE-ACETAMINOPHEN 5-325 MG TABLET PO PRN ×6 (00:51→23:07)
[2018-03-14] MEDS: HEPARIN SOD (PORCINE) 5,000 UNIT/ML 1 ML SYRINGE SUBCUT SCH ×3 (05:20→22:26)
[2018-03-14] MEDS: KETOROLAC TROMETHAMINE INJ/PF 30 MG/1 ML SDV IV PRN ×2 (06:16→12:13)
[2018-03-14] MEDS: IPRATROPIUM/ALBUTEROL 0.5-2.5 MG/3 ML AMPUL NEB SCH ×2 (08:00→20:20)
--- NOTE | 2018-03-14 09:06 | PDOC DISCHARGE SUMMARY ---
General - Admit/Disc Date/PCP Admission Date/Primary Care Provider: 03/09/18 14:40 [facility] MEAD MD Discharge Date: 03/14/18 - Discharge Diagnosis (1) Acute nondisplaced right knee fracture Is this a current diagnosis for this admission?: Yes (2) Cellulitis of right leg Is this a current diagnosis for this admission?: Yes (3) Chronic back pain Is this a current diagnosis for this admission?: Yes (4) Tibial plateau fracture, right Is this a current diagnosis for this admission?: Yes (5) Venous stasis ulcer of right lower extremity Is this a current diagnosis for this admission?: Yes (6) Chronic venous insufficiency Is this a current diagnosis for this admission?: No - Additional Information Resuscitation Status: Full Code Discharge Diet: Cardiac Discharge Activity: Keep Legs Elevated Home Medications: Albuterol Sulfate [Proair HFA Inhalation Aerosol 8.5 gm MDI] 2 puff IH Q4HP PRN 03/09/18 Albuterol Sulfate [Ventolin 0.083% Neb 2.5 mg/3 mL Ampul] 1 vial NEB RTQ4HP PRN 03/09/18 Alprazolam [Xanax] 0.5 mg PO BID 03/09/18 Amlodipine Besylate [Norvasc 10 mg Tablet] 10 mg PO DAILY 03/09/18 Lamotrigine [Lamictal 100 mg Tablet] 100 mg PO Q12 03/09/18 Omeprazole 40 mg PO DAILY 03/09/18 Oxycodone HCl/Acetaminophen [Endocet 10-325 mg Tablet] 1.5 tab PO Q4HP PRN 03/09 Pravastatin Sodium [Pravachol] 40 mg PO DAILY 03/09/18 Tamsulosin HCl [Flomax] 0.4 mg PO DAILY 03/09/18 Venlafaxine HCl [Effexor] 50 mg PO BID 03/09/18 Acetaminophen [Tylenol 325 mg Tablet] 650 mg PO Q4HP PRN tablet 03/14/18 Atorvastatin Calcium [Lipitor 10 mg Tablet] 10 mg PO QHS tablet 03/14/18 Cephalexin Monohydrate [Keflex 500 mg Capsule] 500 mg PO Q6 #16 capsule Ferrous Sulfate [Feosol 325 mg Tablet] 325 mg PO BID tablet 03/14/18 Flu Vacc [id number](6Mos Up)/Pf [Fluarix Adlt Quad Vac 0.5 ml Syr] 0.5 ml IM .DISCHARGE PRN syringe 03/14/18 Fluticasone Propionate [Flonase Nasal [place] 50 Mcg/[place] 16 gm] 1 spray NASL DAILY spray.pump 03/14/18 Guaifenesin [Robitussin Syrup 200 mg/10 ml Ud Cup] 200 mg PO BID udc 03/14/18 Ipratropium/Albuterol Sulfate [Duoneb 3 ml Ampul] 3 ml NEB RTQ12 vial.neb 03/14 Ipratropium/Albuterol Sulfate [Duoneb 3 ml Ampul] 3 ml NEB [id number] PRN vial.neb 03/14/18 Lidocaine [Lidoderm 5% (700 mg) Transdermal Patch] 1 patch TP DAILY adh..patch 03/14/18 Mag Hydrox/Al Hydrox/Simeth [Maalox Plus Susp 30 Udcup] 30 ml PO Q6HP PRN udc 03/14/18 Tiotropium [place] [Spiriva Handihaler 5 Cap/Kit (18 Mcg/Cap)] 1 cap IH DAILY kit 03/14/18 History of Present Illness History of Present Illness: 68 year old male with a history of chronic right leg ulcer with venous stasis, chronic back and hip pain. He presents 6 hours after falling to his knees resulting in excruciating pain to the right knee prompting evaluation in the emergency room. He is found to have exceptional pain to the right lower extremity with right knee effusion and 1.1 cm loose body of the posterior knee joint. He also complains of increasing erythema surrounding right leg ulcer. He denies chest pain, palpitations, nausea vomiting, dizziness or other trauma after the fall. He denies recent change in his medication regiment and otherwise feels at baseline. He is followed by [facility] wound care clinic for chronic lymphedema and right leg ulcer. Hospital Course Hospital Course: Cellulitis of right leg. Ultrasound duplex are negative for DVT. Patient was started on daptomycin upon admission due to his allergies to vancomycin, clindamycin, penicillin and sulfa antibiotics. ID consulted for further antibiotic recommendations. Patient was tried on Keflex and tolerated very well. Will discharge on oral Keflex to complete total course of 10 days. Surgery also consulted and has advised Unna boot. Acute nondisplaced right knee fracture MRI did show a nondisplaced acute right fibular head fracture. Orthopedics has evaluated the patient and has recommend doing conservative treatment with the immobilizer. Physical therapy consult. Patient will need inpatient rehab/SNF. Physical Exam Vital Signs: Temp Pulse Resp BP Pulse Ox 97.9 F 70 15 127/77 H 96 03/14/18 00:00 03/14/18 08:00 03/14/18 08:00 03/14/18 00:00 03/14/18 08:00 Intake & Output 03/13/18 03/14/18 03/15/18 06:59 06:59 06:59 Intake Total 1975 1592 Output Total 1035 325 Balance 940 1267 Weight 245 lb 9.519 oz 245 lb 5.992 oz General appearance: PRESENT: obese Head exam: PRESENT: atraumatic, normocephalic Eye exam: PRESENT: EOMI Ear exam: ABSENT: drainage Neck exam: ABSENT: meningismus Respiratory exam: ABSENT: accessory muscle use, wheezes Cardiovascular exam: PRESENT: RRR GI/Abdominal exam: PRESENT: normal bowel sounds Neurological exam: PRESENT: alert, altered, awake, oriented to person, oriented to place, oriented to time, oriented to situation Psychiatric exam: ABSENT: agitated, anxious Results Laboratory Results: 03/10/18 04:23 03/10/18 04:23 03/12/18 03/12/18 03/12/18 06:07 06:07 11:52 Creatine Kinase 57 65 CK-MB (CK-2) 1.34 Troponin I < 0.012 03/12/18 03/12/18 03/12/18 11:52 18:06 18:06 Creatine Kinase 68 CK-MB (CK-2) 1.39 1.27 Troponin I < 0.012 < 0.012 Impressions: Knee X-Ray 03/08/18 21:25 IMPRESSION: Moderate right knee effusion. 1.1 cm loose body of the posterior knee joint. Lower Extremity MRI 03/10/18 00:00 IMPRESSION: 1. Acute nondisplaced, comminuted fracture of the lateral tibial plateau extending to the medial tibial plateau. 2. Acute nondisplaced fracture of the fibular head. 3. Large lipohemarthrosis. 4. No meniscal tear or ligamentous injury. Chest X-Ray 03/12/18 00:00 IMPRESSION: Small left basilar pneumonia/atelectasis. Small right effusion/atelectasis. Qualifiers - * PATIENT BEING DISCHARGED WITH ANY OF THE FOLLOWING DIAGNOSIS: No
[2018-03-14] MEDS: LIDOCAINE 5% (700 MG) TRANSDERMAL ADH..PATCH TP SCH (09:19)
[2018-03-14] MEDS: LAMOTRIGINE 100 MG TABLET PO SCH ×2 (09:19→17:31)
[2018-03-14] MEDS: FLUTICASONE NASAL SPRAY 50 MCG/SPRY 120 SPRAY/16 GM NASL SCH (09:19)
[2018-03-14] MEDS: FERROUS SULFATE 325 MG TABLET PO SCH ×2 (09:19→17:30)
[2018-03-14] MEDS: TIOTROPIUM BROMIDE DPI 5 CAP/KIT (18 MCG/CAP) IH SCH (09:19)
[2018-03-14] MEDS: PANTOPRAZOLE SODIUM 40 MG VIAL IV SCH (09:19)
[2018-03-14] MEDS: GUAIFENESIN SYRP 200 MG/10 ML UDC PO SCH ×2 (09:19→17:29)
[2018-03-14] MEDS: ATORVASTATIN CALCIUM 10 MG TABLET PO SCH (22:25)
[2018-03-14] MEDS: TAMSULOSIN HCL 0.4 MG CAP.SR.24H PO SCH (22:25)
[2018-03-14] MEDS: AMLODIPINE BESYLATE 10 MG TABLET PO SCH (22:25)
[2018-03-15] MEDS: OXYCODONE-ACETAMINOPHEN 5-325 MG TABLET PO PRN ×5 (03:21→19:26)
[2018-03-15] MEDS: CEPHALEXIN 500 MG CAPSULE PO SCH ×3 (05:25→18:24)
[2018-03-15] MEDS: HEPARIN SOD (PORCINE) 5,000 UNIT/ML 1 ML SYRINGE SUBCUT SCH ×2 (05:26→13:31)
[2018-03-15] MEDS: IPRATROPIUM/ALBUTEROL 0.5-2.5 MG/3 ML AMPUL NEB SCH ×2 (08:19→20:05)
[2018-03-15] MEDS: GUAIFENESIN SYRP 200 MG/10 ML UDC PO SCH ×2 (09:12→18:21)
[2018-03-15] MEDS: LIDOCAINE 5% (700 MG) TRANSDERMAL ADH..PATCH TP SCH (09:18)
[2018-03-15] MEDS: FERROUS SULFATE 325 MG TABLET PO SCH ×2 (09:18→18:24)
[2018-03-15] MEDS: LAMOTRIGINE 100 MG TABLET PO SCH ×2 (09:18→18:24)
[2018-03-15] MEDS: FLUTICASONE NASAL SPRAY 50 MCG/SPRY 120 SPRAY/16 GM NASL SCH (09:18)
[2018-03-15] MEDS: PANTOPRAZOLE SODIUM 40 MG VIAL IV SCH (09:19)
[2018-03-15] MEDS: TIOTROPIUM BROMIDE DPI 5 CAP/KIT (18 MCG/CAP) IH SCH (09:19)
[2018-03-15] MEDS: NYSTATIN TOPICAL POWDER 15 GM TP SCH ×2 (11:22→18:28)
[2018-03-15 17:59] VITALS: BP 136/74
== END 2018-03-15 20:40 | DRG 603 ==
LOC: ER 19:44 → EH 03-09 03:13 → INTOOBSV 03-09 03:13 → 5 03-09 05:15 → OBSVTOIN 03-09 14:40
PROVIDERS: ADMIT Internal Medicine; ATTEND Internal Medicine
PROC: 3E0F73Z Introduction of Anti-inflammatory into Respiratory Tract, Via Natural or Artificial Opening (ICD-10-PCS; principal; 2018-03-09)
DX: L03.115 Cellulitis of right lower limb (principal); S82.144A Nondisplaced bicondylar fracture of right tibia, initial encounter for closed fracture; L97.819 Non-pressure chronic ulcer of other part of right lower leg with unspecified severity; F11.20 Opioid dependence, uncomplicated; S82.491A Other fracture of shaft of right fibula, initial encounter for closed fracture; W01.0XXA Fall on same level from slipping, tripping and stumbling without subsequent striking against object, initial encounter; G89.29 Other chronic pain; M54.9 Dorsalgia, unspecified; I87.8 Other specified disorders of veins; E78.00 Pure hypercholesterolemia, unspecified; I10 Essential (primary) hypertension; J44.9 Chronic obstructive pulmonary disease, unspecified; K21.9 Gastro-esophageal reflux disease without esophagitis; M19.90 Unspecified osteoarthritis, unspecified site; F32.9 Major depressive disorder, single episode, unspecified; D64.9 Anemia, unspecified; Y92.019 Unspecified place in single-family (private) house as the place of occurrence of the external cause; Z79.899 Other long term (current) drug therapy; Z90.49 Acquired absence of other specified parts of digestive tract; Z87.891 Personal history of nicotine dependence; Z88.3 Allergy status to other anti-infective agents; Z88.0 Allergy status to penicillin; Z88.2 Allergy status to sulfonamides
CPT/HCPCS: 36415; 71045; 80048; 80053; 82550; 82553; 83605; 83880; 84484; 85025; 87040; 93005; 93010; 93926; 93971; 94640; 94799; 96365; 96375; 96376; 99285; G0378; G8978-GP; G8979-GP; J1170; J1644; J1885; J2020; J2270; J3490; J7030; J7620; L1830; S0164

== ENCOUNTER 2018-08-24 08:40 | Emergency (ER) | payer MEDICARE ==
[2018-08-24 09:31] LABS: VENOUS BLOOD BASE EXCESS 3.2 mmol/L; VENOUS BLOOD PCO2 56.1 mmHg (35-63); VENOUS BLOOD PH 7.35 (7.30-7.42)
[2018-08-24 09:39] LABS: ABSOLUTE EOSINOPHILS # (AUTO) 0.3 10^3/uL (0.0-0.6); ABSOLUTE LYMPHOCYTES (AUTO) 1.5 10^3/uL (0.5-4.7); ABSOLUTE MONOCYTES (AUTO) 0.6 10^3/uL (0.1-1.4); ABSOLUTE NEUT (AUTO) 4.9 10^3/uL (1.7-8.2); BASOPHILS % (AUTO) 0.7 % (0-2); EOSINOPHILS % (AUTO) 3.5 % (0-6); HEMATOCRIT 33.8 % (37.9-51.0); LYMPHOCYTES % (AUTO) 20.1 % (13-45); MEAN CORPUSCULAR HEMOGLOBIN 25.8 pg (27.0-33.4); MEAN CORPUSCULAR HGB CONC 32.5 g/dL (32.0-36.0); MEAN CORPUSCULAR VOLUME 79 fl (80-97); MONOCYTES % (AUTO) 7.8 % (3-13); PLATELET COUNT 441 10^3/uL (150-450); RED BLOOD COUNT 4.26 10^6/uL (4.35-5.55); RED CELL DISTRIBUTION WIDTH 16.1 % (11.5-14.0); SEGMENTED NEUTROPHILS % (AUTO) 67.9 % (42-78); TOTAL CELLS COUNTED % (AUTO) 100 %; WHITE BLOOD COUNT 7.3 10^3/uL (4.0-10.5)
[2018-08-24 09:48] LABS: INTERNATIONAL RATION (INR) 0.94
[2018-08-24 10:05] LABS: APPEARANCE,URINE CLEAR; BILIRUBIN,URINE SMALL (NEGATIVE); COLOR,URINE AMBER; GLUCOSE, URINE NEGATIVE (NEGATIVE); KETONES,URINE TRACE mg/dL (NEGATIVE); LEUKOCYTE ESTERASE,URINE NEGATIVE (NEGATIVE); NITRITE,URINE NEGATIVE (NEGATIVE); PROTEIN,URINE 30 mg/dL (NEGATIVE); URINE SPECIFIC GRAVITY 1.033
[2018-08-24 10:06] LABS: ALANINE AMINOTRANSFERASE 23 U/L (21-72); ALBUMIN 3.9 g/dL (3.5-5.0); ALKALINE PHOSPHATASE 112 U/L (38-126); ANION GAP 11 (5-19); ASPARTATE AMINO TRANSFERASE 19 U/L (17-59); BILIRUBIN,DIRECT 0.3 mg/dL (0.0-0.4); BILIRUBIN,TOTAL 0.3 mg/dL (0.2-1.3); BLOOD UREA NITROGEN 10 mg/dL (7-20); CALCIUM 9.2 mg/dL (8.4-10.2); CARBON DIOXIDE 28 mmol/L (22-30); CHLORIDE 101 mmol/L (98-107); POTASSIUM 4.5 mmol/L (3.6-5.0); TOTAL PROTEIN 6.9 g/dL (6.3-8.2)
[2018-08-24 10:09] LABS: GLUCOSE 96 mg/dL (75-110)
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
[2018-08-24 13:04] VITALS: BP 142/85
--- NOTE | 2018-08-24 17:43 | EKG REPORT ---
SEVERITY:- ABNORMAL ECG - SINUS RHYTHM NONSPECIFIC INTRAVENTRICULAR CONDUCTION DELAY : Confirmed by: Adonay Anaya 24-Aug-2018 17:42:55
== END 2018-08-24 13:03 | disposition home or self-care (01) ==
LOC: ER 08:40
DX: I87.8 Other specified disorders of veins (principal); M79.671 Pain in right foot; R59.1 Generalized enlarged lymph nodes; R60.0 Localized edema; Z87.891 Personal history of nicotine dependence; I10 Essential (primary) hypertension
CPT/HCPCS: 36415; 80053; 81001; 82803; 83605; 85025; 85610; 87040; 87086; 93005; 93010; 99283

== ENCOUNTER 2019-01-25 11:46 | Emergency (ER) | payer MEDICARE ==
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
[2019-01-25 12:19] LABS: ABSOLUTE BASOPHILS # (AUTO) 0.1 10^3/uL (0.0-0.2); ABSOLUTE EOSINOPHILS # (AUTO) 0.2 10^3/uL (0.0-0.6); ABSOLUTE LYMPHOCYTES (AUTO) 1.3 10^3/uL (0.5-4.7); ABSOLUTE MONOCYTES (AUTO) 0.5 10^3/uL (0.1-1.4); ABSOLUTE NEUT (AUTO) 6.7 10^3/uL (1.7-8.2); BASOPHILS % (AUTO) 0.9 % (0-2); EOSINOPHILS % (AUTO) 2.4 % (0-6); HEMATOCRIT 33.8 % (37.9-51.0); HEMOGLOBIN 10.7 g/dL (13.5-17.0); LYMPHOCYTES % (AUTO) 14.6 % (13-45); MEAN CORPUSCULAR HGB CONC 31.7 g/dL (32.0-36.0); MEAN CORPUSCULAR VOLUME 79 fl (80-97); MONOCYTES % (AUTO) 5.3 % (3-13); PLATELET COUNT 560 10^3/uL (150-450); RED CELL DISTRIBUTION WIDTH 16.9 % (11.5-14.0); SEGMENTED NEUTROPHILS % (AUTO) 76.8 % (42-78); TOTAL CELLS COUNTED % (AUTO) 100 %; WHITE BLOOD COUNT 8.7 10^3/uL (4.0-10.5)
[2019-01-25 12:44] LABS: ALBUMIN 3.5 g/dL (3.5-5.0); ALKALINE PHOSPHATASE 80 U/L (38-126); ANION GAP 5 (5-19); ASPARTATE AMINO TRANSFERASE 21 U/L (17-59); BILIRUBIN,DIRECT 0.1 mg/dL (0.0-0.4); BILIRUBIN,TOTAL 0.3 mg/dL (0.2-1.3); BLOOD UREA NITROGEN 8 mg/dL (7-20); CARBON DIOXIDE 32 mmol/L (22-30); CHLORIDE 102 mmol/L (98-107); GLUCOSE 93 mg/dL (75-110); POTASSIUM 4.7 mmol/L (3.6-5.0)
[2019-01-25 12:45] LABS: ALCOHOL < 10 mg/dL (NONE DETECTED)
[2019-01-25] MEDS ORDERED: MORPHINE SULFATE 10 MG/ML INJ IV ONE ×2 (13:19→14:32)
[2019-01-25] MEDS ORDERED: ONDANSETRON HCL INJ/PF 4 MG/2 ML SDV IV ONE (13:19)
[2019-01-25] MEDS ORDERED: LEVETIRACETAM 1500 MG/NACL-ISO 1,500 MG/100 ML RTUPB IV ONE (13:20)
[2019-01-25 13:40] LABS: APPEARANCE,URINE CLEAR; BILIRUBIN,URINE NEGATIVE (NEGATIVE); COLOR,URINE YELLOW; GLUCOSE, URINE NEGATIVE (NEGATIVE); KETONES,URINE NEGATIVE (NEGATIVE); LEUKOCYTE ESTERASE,URINE NEGATIVE (NEGATIVE); NITRITE,URINE NEGATIVE (NEGATIVE); PROTEIN,URINE NEGATIVE (NEGATIVE); URINE SPECIFIC GRAVITY 1.013; UROBILINOGEN,URINE NEGATIVE mg/dL (<2.0)
[2019-01-25] MEDS ORDERED: OXYCODONE-ACETAMINOPHEN 5-325 MG TABLET PO ONE (14:32)
[2019-01-25 15:21] VITALS: BP 133/80
== END 2019-01-25 15:23 | disposition home or self-care (01) ==
LOC: ER 11:46
DX: R56.9 Unspecified convulsions (principal); Z79.899 Other long term (current) drug therapy; I89.0 Lymphedema, not elsewhere classified; L97.919 Non-pressure chronic ulcer of unspecified part of right lower leg with unspecified severity; M79.671 Pain in right foot; G89.29 Other chronic pain; Z79.891 Long term (current) use of opiate analgesic; I10 Essential (primary) hypertension; J44.9 Chronic obstructive pulmonary disease, unspecified; Z88.1 Allergy status to other antibiotic agents; Z88.0 Allergy status to penicillin; Z88.2 Allergy status to sulfonamides; Z87.891 Personal history of nicotine dependence
CPT/HCPCS: 36415; 82962; 80307; 83735; 85025; 80053; 81001; J2270; A9270; J2405; J1953

== ENCOUNTER 2019-02-10 01:51 | Inpatient (IN) | payer MEDICARE ==
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
[2019-02-10 02:47] LABS: ABSOLUTE BASOPHILS # (AUTO) 0.1 10^3/uL (0.0-0.2); ABSOLUTE EOSINOPHILS # (AUTO) 0.2 10^3/uL (0.0-0.6); ABSOLUTE LYMPHOCYTES (AUTO) 1.6 10^3/uL (0.5-4.7); ABSOLUTE MONOCYTES (AUTO) 0.5 10^3/uL (0.1-1.4); ABSOLUTE NEUT (AUTO) 6.5 10^3/uL (1.7-8.2); BASOPHILS % (AUTO) 0.9 % (0-2); EOSINOPHILS % (AUTO) 2.2 % (0-6); HEMATOCRIT 35.8 % (37.9-51.0); HEMOGLOBIN 11.7 g/dL (13.5-17.0); LYMPHOCYTES % (AUTO) 18.1 % (13-45); MEAN CORPUSCULAR HEMOGLOBIN 25.4 pg (27.0-33.4); MEAN CORPUSCULAR HGB CONC 32.6 g/dL (32.0-36.0); MEAN CORPUSCULAR VOLUME 78 fl (80-97); MONOCYTES % (AUTO) 6.1 % (3-13); PLATELET COUNT 423 10^3/uL (150-450); RED BLOOD COUNT 4.59 10^6/uL (4.35-5.55); RED CELL DISTRIBUTION WIDTH 16.3 % (11.5-14.0); SEGMENTED NEUTROPHILS % (AUTO) 72.7 % (42-78); TOTAL CELLS COUNTED % (AUTO) 100 %
[2019-02-10 02:51] LABS: ALBUMIN 3.7 g/dL (3.5-5.0); ALKALINE PHOSPHATASE 85 U/L (38-126); ANION GAP 9 (5-19); ASPARTATE AMINO TRANSFERASE 19 U/L (17-59); BILIRUBIN,DIRECT 0.1 mg/dL (0.0-0.4); BILIRUBIN,TOTAL 0.3 mg/dL (0.2-1.3); BLOOD UREA NITROGEN 12 mg/dL (7-20); CALCIUM 9.8 mg/dL (8.4-10.2); CARBON DIOXIDE 29 mmol/L (22-30); CHLORIDE 96 mmol/L (98-107); GLUCOSE 115 mg/dL (75-110); POTASSIUM 4.9 mmol/L (3.6-5.0); TOTAL PROTEIN 7.4 g/dL (6.3-8.2)
[2019-02-10 03:10] LABS: VENOUS BLOOD BASE EXCESS 5.4 mmol/L; VENOUS BLOOD HCO3 32.3 mmol/L (20-32); VENOUS BLOOD PCO2 58.7 mmHg (35-63); VENOUS BLOOD PH 7.36 (7.30-7.42)
--- NOTE | 2019-02-10 03:30 | RADIOLOGY REPORT (SQ) ---
EXAM DESCRIPTION: XR CHEST 2 VIEWS COMPLETED DATE/TME: 02/10/2019 02:35 CLINICAL HISTORY: chest pain, shortness of breath COMPARISON: 03/12/2018 FINDINGS: Frontal and lateral views of the chest. Cardiomediastinal silhouette: Normal size and contour. Lungs: No consolidation, pneumothorax, or pleural effusion. Low lung volumes. Bones: No acute osseous abnormality. Upper abdomen: No abnormality identified. IMPRESSION: 1. No acute pulmonary process identified. Low lung volumes.
[2019-02-10] MEDS ORDERED: METHYLPREDNISOLONE INJ 125 MG/2 ML SDV IV ONE (03:49)
[2019-02-10] MEDS ORDERED: IPRATROPIUM/ALBUTEROL 0.5-2.5 MG/3 ML AMPUL NEB ONE ×3 (03:49)
[2019-02-10] MEDS ORDERED: HYDROMORPHONE HCL 2 MG TABLET PO ONE (04:44)
--- NOTE | 2019-02-10 05:30 | RADIOLOGY REPORT (SQ) ---
EXAM DESCRIPTION: CT CHEST ANGIOGRAPHY WITHOUT THEN WITH IV CONTRAST COMPLETED DATE/TME: 02/10/2019 03:44 CLINICAL HISTORY: 68 years Male, CHESTPAIN,SOB. CARDIAC ARREST ON O.R. TABLE 02/06, CPR REVIVED.CREAT 0.74 Comparison: CR, same day. CT, abdomen/pelvis, 06/30/17, report only. Technique: IV contrast. Coronal and sagittal reformat. 3d reconstruction. This exam was performed according to our departmental dose-optimization program, which includes automated exposure control, adjustment of the mA and/or kV according to patient size and/or use of iterative reconstruction technique.[facility]: Dose Right [facility]: CareDose [facility]: Dose Right [facility]: Teradose 4D [facility]: Socialscope LIMITATIONS: None Findings: No pulmonary embolus. No right ventricular strain. Clear lungs. Coronary arterial calcification. Atherosclerotic vascular disease. Moderate consolidation of the right lower lobe. Small consolidation of the left lower lobe and lingula. Small mucus of the left bronchus. Moderate mucous occlusion of the right lower lobar bronchi. Paraseptal emphysema. Mild T11 anterior vertebral compression deformity. Mild/moderate T6 anterior vertebral compression deformity. Right third anterior rib fracture. Cholecystectomy. Inferior neck, axillae, mediastinum, airway, lymphatics, heart, vasculature, upper abdomen, and musculoskeleton appear otherwise unremarkable. Impression: 1. Aspiration pneumonia. No pulmonary embolus. Recommend CR/CT surveillance including at 7-12 weeks following initiation of any clinically warranted therapy. 2. Mild T11 anterior vertebral compression deformity. 3. Mild/moderate T6 anterior vertebral compression deformity. 4. Right third anterior rib fracture.
[2019-02-10] MEDS ORDERED: CEFTRIAXONE 1 GM/D5W RTU 1 GM/50 ML RTUPB IV ONE (05:37)
[2019-02-10] MEDS ORDERED: METRONIDAZOLE 500 MG/NS RTU 500 MG/100 ML RTUPB IV ONE (05:37)
[2019-02-10] MEDS ORDERED: IPRATROPIUM/ALBUTEROL 0.5-2.5 MG/3 ML AMPUL NEB PRN (05:43)
[2019-02-10] MEDS ORDERED: ACETAMINOPHEN 325 MG TABLET PO PRN (05:43)
[2019-02-10] MEDS ORDERED: LEVOFLOXACIN 750 MG/D5W RTU 750 MG/150 ML RTUPB IV ONE (06:00)
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
[2019-02-10] MEDS: IPRATROPIUM/ALBUTEROL 0.5-2.5 MG/3 ML AMPUL NEB SCH ×2 (07:38→16:15)
--- NOTE | 2019-02-10 08:33 | Progress Note ---
Provider Note Provider Note: She admitted for pneumonia has a history of chronic right lower extremity venous stasis ulcers status post multiple attempts at debridement and wound therapy with Unna boots. Surgical is consulted for appropriate wound care of the right lower extremity venous stasis ulcer. Plan initially was for Unna boot placement however patient refused secondary to history of extreme pain with Unna boots. Patient has been followed in [place] by clinical review specialist surgeon and plans were initially made for debridement however patient arrested during induction of anesthesia and therefore the surgical plan was canceled at that time. Patient has a follow-up scheduled with a surgeon in [place] for either wound debridement or [id number] amputation. Currently patient admitted for treatment of pneumonia. We will continue with current treatment plans as the patient has a follow-up appointment scheduled. We will plan on daily dressing changes with Xeroform gauze and then dry dressing to be changed daily. Upon discharge patient should follow-up with his surgeon in [place]. Please consult surgery for any further questions
[2019-02-10] MEDS: GUAIFENESIN 600 MG TABLET.SA PO SCH ×2 (09:13→21:06)
[2019-02-10] MEDS ORDERED: METHYLPREDNISOLONE INJ 125 MG/2 ML SDV ONE (09:25)
[2019-02-10] MEDS ORDERED: DIPHENHYDRAMINE HCL 50 MG/ML VIAL ONE (09:25)
[2019-02-10] MEDS: HEPARIN SOD (PORCINE) 5,000 UNIT/ML 1 ML VIAL SUBCUT SCH ×3 (10:08→21:06)
[2019-02-10] MEDS ORDERED: KETOROLAC TROMETHAMINE INJ/PF 30 MG/1 ML SDV ONE (10:41)
[2019-02-10 10:59] LABS: ARTERIAL BLOOD BASE EXCESS 4.5 mmol/L; ARTERIAL BLOOD H2CO3 1.26 mmol/L (1.05-1.35); ARTERIAL BLOOD HCO3 28.8 mmol/L (20-24); ARTERIAL BLOOD O2 SATURATION 89.1 % (94-98); ARTERIAL BLOOD PCO2 41.8 mmHg (35-45); ARTERIAL BLOOD PH 7.46 (7.35-7.45); ARTERIAL BLOOD PO2 53.2 mmHg (80-100); ARTERIAL BLOOD TOTAL CO2 30.1 mmol/L (23-27)
[2019-02-10] MEDS ORDERED: KETOROLAC TROMETHAMINE INJ/PF 30 MG/1 ML SDV IV ONE (11:00)
[2019-02-10 11:04] LABS: ARTERIAL BLOOD FIO2 ROOM AIR
[2019-02-10] MEDS: HYDROMORPHONE HCL 2 MG TABLET PO PRN ×4 (11:51→21:06)
[2019-02-10] MEDS ORDERED: NYSTATIN CREAM 15 GM TOP PRN (13:58)
[2019-02-10] MEDS ORDERED: ALBUTEROL SULFATE 0.083% NEB 2.5 MG/3 ML AMPUL NEB PRN (13:58)
[2019-02-10] MEDS: FUROSEMIDE 20 MG TABLET PO SCH (17:36)
[2019-02-10 18:19] LABS: ARTERIAL BLOOD BASE EXCESS 1.4 mmol/L; ARTERIAL BLOOD FIO2 100%; ARTERIAL BLOOD H2CO3 1.11 mmol/L (1.05-1.35); ARTERIAL BLOOD HCO3 25.2 mmol/L (20-24); ARTERIAL BLOOD O2 SATURATION 91.3 % (94-98); ARTERIAL BLOOD PH 7.45 (7.35-7.45); ARTERIAL BLOOD PO2 57.6 mmHg (80-100); ARTERIAL BLOOD TOTAL CO2 26.3 mmol/L (23-27)
[2019-02-10] MEDS ORDERED: OXYCODONE-ACETAMINOPHEN 5-325 MG TABLET ONE (21:03)
[2019-02-10] MEDS: ATORVASTATIN CALCIUM 10 MG TABLET PO SCH (21:06)
[2019-02-10] MEDS: LEVETIRACETAM 500 MG TABLET PO SCH (21:06)
[2019-02-10] MEDS: CARVEDILOL 3.125 MG TABLET PO SCH (21:07)
[2019-02-10] MEDS: LAMOTRIGINE 100 MG TABLET PO SCH (21:07)
[2019-02-10] MEDS: OXYCODONE-ACETAMINOPHEN 5-325 MG TABLET PO PRN (21:10)
[2019-02-10] MEDS ORDERED: (PENDING PHARMACY ID) (Pravastatin Sodium [Pravachol] 40 MG) PO SCH (22:00)
--- NOTE | 2019-02-10 22:07 | EKG REPORT ---
SEVERITY:- ABNORMAL ECG - SINUS TACHYCARDIA NONSPECIFIC INTRAVENTRICULAR CONDUCTION DELAY : Confirmed by: Adonay Anaya 10-Feb-2019 22:06:39
[2019-02-11] MEDS: HYDROMORPHONE HCL 2 MG TABLET PO PRN ×6 (00:05→21:19)
[2019-02-11] MEDS: IPRATROPIUM/ALBUTEROL 0.5-2.5 MG/3 ML AMPUL NEB SCH ×4 (01:00→23:51)
[2019-02-11] MEDS: OXYCODONE-ACETAMINOPHEN 5-325 MG TABLET PO PRN ×3 (04:44→18:14)
[2019-02-11] MEDS: HEPARIN SOD (PORCINE) 5,000 UNIT/ML 1 ML VIAL SUBCUT SCH ×3 (06:21→21:23)
[2019-02-11 06:40] LABS: ABSOLUTE MONOCYTES (AUTO) 0.8 10^3/uL (0.1-1.4); ABSOLUTE NEUT (AUTO) 6.5 10^3/uL (1.7-8.2); BASOPHILS % (AUTO) 0.4 % (0-2); EOSINOPHILS % (AUTO) 0.1 % (0-6); HEMATOCRIT 31.3 % (37.9-51.0); HEMOGLOBIN 10.4 g/dL (13.5-17.0); LYMPHOCYTES % (AUTO) 21.2 % (13-45); MEAN CORPUSCULAR HEMOGLOBIN 25.6 pg (27.0-33.4); MEAN CORPUSCULAR HGB CONC 33.3 g/dL (32.0-36.0); MEAN CORPUSCULAR VOLUME 77 fl (80-97); MONOCYTES % (AUTO) 8.4 % (3-13); PLATELET COUNT 446 10^3/uL (150-450); RED BLOOD COUNT 4.07 10^6/uL (4.35-5.55); RED CELL DISTRIBUTION WIDTH 16.5 % (11.5-14.0); SEGMENTED NEUTROPHILS % (AUTO) 69.9 % (42-78); TOTAL CELLS COUNTED % (AUTO) 100 %; WHITE BLOOD COUNT 9.4 10^3/uL (4.0-10.5)
[2019-02-11 06:51] LABS: ANION GAP 8 (5-19); BLOOD UREA NITROGEN 13 mg/dL (7-20); CALCIUM 9.8 mg/dL (8.4-10.2); CARBON DIOXIDE 29 mmol/L (22-30); CHLORIDE 99 mmol/L (98-107); GLUCOSE 100 mg/dL (75-110); POTASSIUM 4.2 mmol/L (3.6-5.0)
[2019-02-11] MEDS: FLUTICASONE/VILANTEROL 200-25 MCG/DOSE IH SCH (09:27)
[2019-02-11] MEDS: ASPIRIN 81 MG TABLET, CHEWABLE PO SCH (09:27)
[2019-02-11] MEDS: LEVOFLOXACIN 750 MG/D5W RTU 750 MG/150 ML RTUPB IV SCH (09:27)
[2019-02-11] MEDS: SPIRONOLACTONE 25 MG TABLET PO SCH (09:27)
[2019-02-11] MEDS: LAMOTRIGINE 100 MG TABLET PO SCH ×2 (09:28→21:21)
[2019-02-11] MEDS: LOSARTAN POTASSIUM 25 MG TABLET PO SCH (09:28)
[2019-02-11] MEDS: CARVEDILOL 3.125 MG TABLET PO SCH ×2 (09:28→21:22)
[2019-02-11] MEDS: TAMSULOSIN HCL 0.4 MG CAP.SR.24H PO SCH (09:28)
[2019-02-11] MEDS: LEVETIRACETAM 500 MG TABLET PO SCH ×2 (09:28→21:22)
[2019-02-11] MEDS: GUAIFENESIN 600 MG TABLET.SA PO SCH ×2 (09:29→21:21)
[2019-02-11] MEDS: FUROSEMIDE 20 MG TABLET PO SCH ×2 (09:29→18:13)
[2019-02-11] MEDS: LIDOCAINE 5% (700 MG) TRANSDERMAL ADH..PATCH TOP SCH (09:29)
[2019-02-11] MEDS: PANTOPRAZOLE SODIUM 40 MG TABLET.DR PO SCH (09:29)
--- NOTE | 2019-02-11 13:58 | PDOC PROGRESS REPORT ---
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 Patient presented to the ER with increasing shortness of breath after recent discharge and hospitalization at [facility]. He was discharged on 02/09 from [facility] where he went into cardiac arrest (pulseless electrical activity) during induction for right leg debridement and venous stripping. Patient received 3 minutes of ACLS and was subsequently intubated and managed in the ICU. He presented to ER with shortness of breath and he was found to have right-sided aspiration pneumonia. Yesterday afternoon, patient desaturated to the 80s and required nonrebreather as he was not compliant with BiPAP. Upon encounter this morning, he is saturating well on 3 L of nasal cannula. He says that his shortness of breath has improved from yesterday. Reason For Visit: COPD EXACERBATION,PNUEMONIA Physical Exam Vital Signs: Temp Pulse Resp BP Pulse Ox 97.5 F 67 16 124/68 95 02/11/19 07:39 02/11/19 08:03 02/11/19 08:03 02/11/19 07:39 02/11/19 08:03 Intake & Output 02/10/19 02/11/19 02/12/19 06:59 06:59 06:59 Intake Total 50 2560 Output Total 1900 Balance 50 660 Weight 211 lb General appearance: PRESENT: no acute distress, well-developed, well-nourished Head exam: PRESENT: atraumatic, normocephalic Eye exam: PRESENT: conjunctiva pink, EOMI, PERRLA. ABSENT: scleral icterus Ear exam: PRESENT: normal external ear exam Mouth exam: PRESENT: moist, tongue midline Neck exam: ABSENT: carotid bruit, JVD, lymphadenopathy, thyromegaly Respiratory exam: PRESENT: rales, rhonchi. ABSENT: wheezes Cardiovascular exam: PRESENT: RRR. ABSENT: diastolic murmur, rubs, systolic murmur Pulses: PRESENT: normal dorsalis pedis pul GI/Abdominal exam: PRESENT: normal bowel sounds, soft. ABSENT: distended, guarding, mass, organolmegaly, rebound, tenderness Rectal exam: PRESENT: deferred Extremities exam: PRESENT: +1 edema Neurological exam: PRESENT: alert, awake, oriented to person, oriented to place, oriented to time, oriented to situation, CN II-XII grossly intact. ABSENT: motor sensory deficit Results Laboratory Results: 02/11/19 06:20 02/11/19 06:20 02/10/19 02/11/19 02/11/19 17:58 06:20 06:20 WBC 9.4 RBC 4.07 L Hgb 10.4 L Hct 31.3 L MCV 77 L MCH 25.6 L MCHC 33.3 RDW 16.5 H Plt Count 446 Seg Neutrophils % 69.9 Carbonic Acid 1.11 HCO3/H2CO3 Ratio 22:1 ABG pH 7.45 ABG pCO2 37.0 ABG pO2 57.6 L ABG HCO3 25.2 H ABG O2 Saturation 91.3 L ABG Base Excess 1.4 FiO2 100% Sodium 136.0 L Potassium 4.2 Chloride 99 Carbon Dioxide 29 Anion Gap 8 BUN 13 Creatinine 0.69 Est GFR ( Amer) > 60 Glucose 100 Calcium 9.8 02/10/19 02:20 Troponin I < 0.012 Impressions: Chest X-Ray 02/10/19 02:35 IMPRESSION: 1. No acute pulmonary process identified. Low lung volumes. Assessment and Plan - Diagnosis (1) Acute respiratory failure with hypoxia Is this a current diagnosis for this admission?: Yes Plan: Secondary to aspiration pneumonia. Weaned off nonrebreather. Currently saturating well on nasal cannula. (2) Aspiration pneumonia Qualifiers: Aspiration pneumonia type: unspecified Laterality: bilateral Lung location: unspecified part of lung Qualified Code(s): J69.0 - Pneumonitis due to inhalation of food and vomit Is this a current diagnosis for this admission?: Yes Plan: Likely related to recent cardiac arrest event. Continue IV antibiotics. Sputum culture pending. (3) Rib fracture Qualifiers: Encounter type: initial encounter Rib fracture type: single rib Fracture type: closed Laterality: right Qualified Code(s): S22.31XA - Fracture of one rib, right side, initial encounter for closed fracture Is this a current diagnosis for this admission?: Yes Plan: Secondary to chest compressions during ACLS. (4) COPD (chronic obstructive pulmonary disease) Qualifiers: COPD type: unspecified COPD Qualified Code(s): J44.9 - Chronic obstructive pulmonary disease, unspecified Is this a current diagnosis for this admission?: Yes Plan: Continue breathing treatments. (5) Seizure disorder Is this a current diagnosis for this admission?: Yes Plan: Continue antiseizure medications. (6) Venous stasis ulcer of right lower extremity Is this a current diagnosis for this admission?: Yes Plan: Evaluated by surgery. He will follow-up with his surgeon at [facility] as outpatient for further management of this. - Time Time Spent with patient: 25-34 minutes
[2019-02-11] MEDS: ATORVASTATIN CALCIUM 10 MG TABLET PO SCH (21:20)
[2019-02-12] MEDS: HYDROMORPHONE HCL 2 MG TABLET PO PRN ×6 (00:23→17:33)
[2019-02-12] MEDS: OXYCODONE-ACETAMINOPHEN 5-325 MG TABLET PO PRN (00:24)
[2019-02-12] MEDS: HEPARIN SOD (PORCINE) 5,000 UNIT/ML 1 ML VIAL SUBCUT SCH ×3 (06:39→22:14)
[2019-02-12] MEDS: IPRATROPIUM/ALBUTEROL 0.5-2.5 MG/3 ML AMPUL NEB SCH ×2 (07:52→17:57)
[2019-02-12] MEDS: LIDOCAINE 5% (700 MG) TRANSDERMAL ADH..PATCH TOP SCH (09:45)
[2019-02-12] MEDS: LEVOFLOXACIN 750 MG/D5W RTU 750 MG/150 ML RTUPB IV SCH (09:45)
[2019-02-12] MEDS: PANTOPRAZOLE SODIUM 40 MG TABLET.DR PO SCH (09:45)
[2019-02-12] MEDS: SPIRONOLACTONE 25 MG TABLET PO SCH (09:45)
[2019-02-12] MEDS: TAMSULOSIN HCL 0.4 MG CAP.SR.24H PO SCH (09:45)
[2019-02-12] MEDS: ASPIRIN 81 MG TABLET, CHEWABLE PO SCH (09:45)
[2019-02-12] MEDS: CARVEDILOL 3.125 MG TABLET PO SCH ×2 (09:45→22:14)
[2019-02-12] MEDS: FUROSEMIDE 20 MG TABLET PO SCH ×2 (09:46→17:32)
[2019-02-12] MEDS: GUAIFENESIN 600 MG TABLET.SA PO SCH ×2 (09:46→22:14)
[2019-02-12] MEDS: FLUTICASONE/VILANTEROL 200-25 MCG/DOSE IH SCH (09:46)
[2019-02-12] MEDS: LEVETIRACETAM 500 MG TABLET PO SCH ×2 (09:46→22:14)
[2019-02-12] MEDS: LOSARTAN POTASSIUM 25 MG TABLET PO SCH (09:46)
[2019-02-12] MEDS: LAMOTRIGINE 100 MG TABLET PO SCH ×2 (09:46→22:14)
--- NOTE | 2019-02-12 13:26 | PDOC PROGRESS REPORT ---
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 Patient presented to the ER with increasing shortness of breath after recent discharge and hospitalization at [facility]. He was discharged on 02/09 from [facility] where he went into cardiac arrest (pulseless electrical activity) during induction for right leg debridement and venous stripping. Patient received 3 minutes of ACLS and was subsequently intubated and managed in the ICU. He presented to ER with shortness of breath and he was found to have right- sided aspiration pneumonia. 02/11: Yesterday afternoon, patient desaturated to the 80s and required nonrebreather as he was not compliant with BiPAP. Upon encounter this morning, he is saturating well on 3 L of nasal cannula. He says that his shortness of breath has improved from yesterday. 02/12: No acute event overnight. He has not required BIPAP or nonrebreather overnight. He is saturating well on 4L via NC. He says his SOB continue to im prove. Anticipate possible discharge in the next 24 hours if he continues to improve on levofloxacin. Reason For Visit: COPD EXACERBATION,PNUEMONIA Physical Exam Vital Signs: Temp Pulse Resp BP Pulse Ox 97.7 F 74 17 123/66 96 02/12/19 07:27 02/12/19 07:52 02/12/19 10:15 02/12/19 07:27 02/12/19 10:15 Intake & Output 02/11/19 02/12/19 02/13/19 06:59 06:59 06:59 Intake Total 2560 750 150 Output Total 1900 1750 Balance 660 -1000 150 General appearance: PRESENT: no acute distress, well-developed, well-nourished Head exam: PRESENT: atraumatic, normocephalic Eye exam: PRESENT: conjunctiva pink, EOMI, PERRLA. ABSENT: scleral icterus Ear exam: PRESENT: normal external ear exam Mouth exam: PRESENT: moist, tongue midline Neck exam: ABSENT: carotid bruit, JVD, lymphadenopathy, thyromegaly Respiratory exam: PRESENT: rales, rhonchi. ABSENT: wheezes Cardiovascular exam: PRESENT: RRR. ABSENT: diastolic murmur, rubs, systolic murmur Pulses: PRESENT: normal dorsalis pedis pul GI/Abdominal exam: PRESENT: normal bowel sounds, soft. ABSENT: distended, guarding, mass, organolmegaly, rebound, tenderness Rectal exam: PRESENT: deferred Neurological exam: PRESENT: alert, awake, oriented to person, oriented to place, oriented to time, oriented to situation, CN II-XII grossly intact. ABSENT: motor sensory deficit Results Laboratory Results: 02/11/19 06:20 02/11/19 06:20 02/10/19 02:20 Troponin I < 0.012 Impressions: Chest X-Ray 02/10/19 02:35 IMPRESSION: 1. No acute pulmonary process identified. Low lung volumes. Assessment and Plan - Diagnosis (1) Acute respiratory failure with hypoxia Is this a current diagnosis for this admission?: Yes Plan: Secondary to aspiration pneumonia. Weaned off nonrebreather. Currently saturating well on nasal cannula. (2) Aspiration pneumonia Qualifiers: Aspiration pneumonia type: unspecified Laterality: bilateral Lung location: unspecified part of lung Qualified Code(s): J69.0 - Pneumonitis due to inhalation of food and vomit Is this a current diagnosis for this admission?: Yes Plan: Likely related to recent cardiac arrest event. Continue IV antibiotics. Sputum culture pending. (3) Rib fracture Qualifiers: Encounter type: initial encounter Rib fracture type: single rib Fracture type: closed Laterality: right Qualified Code(s): S22.31XA - Fracture of one rib, right side, initial encounter for closed fracture Is this a current diagnosis for this admission?: Yes Plan: Secondary to chest compressions during ACLS. (4) COPD (chronic obstructive pulmonary disease) Qualifiers: COPD type: unspecified COPD Qualified Code(s): J44.9 - Chronic obstructive pulmonary disease, unspecified Is this a current diagnosis for this admission?: Yes Plan: Continue breathing treatments. (5) Seizure disorder Is this a current diagnosis for this admission?: Yes Plan: Continue antiseizure medications. (6) Venous stasis ulcer of right lower extremity Is this a current diagnosis for this admission?: Yes Plan: Evaluated by surgery. He will follow-up with his surgeon at [facility] as outpatient for further management of this. - Time Time Spent with patient: 25-34 minutes
[2019-02-12] MEDS: ATORVASTATIN CALCIUM 10 MG TABLET PO SCH (22:14)
[2019-02-13] MEDS: IPRATROPIUM/ALBUTEROL 0.5-2.5 MG/3 ML AMPUL NEB SCH ×4 (00:33→23:46)
[2019-02-13] MEDS: HYDROMORPHONE HCL 2 MG TABLET PO PRN ×4 (03:03→20:07)
[2019-02-13] MEDS: HEPARIN SOD (PORCINE) 5,000 UNIT/ML 1 ML VIAL SUBCUT SCH ×3 (06:05→22:00)
[2019-02-13] MEDS: LEVOFLOXACIN 750 MG/D5W RTU 750 MG/150 ML RTUPB IV SCH (08:51)
[2019-02-13] MEDS: GUAIFENESIN 600 MG TABLET.SA PO SCH ×2 (09:59→22:01)
[2019-02-13] MEDS: CARVEDILOL 3.125 MG TABLET PO SCH ×2 (09:59→22:01)
[2019-02-13] MEDS: LEVOFLOXACIN 500 MG TABLET PO SCH (09:59)
[2019-02-13] MEDS: LAMOTRIGINE 100 MG TABLET PO SCH ×2 (09:59→22:01)
[2019-02-13] MEDS: FUROSEMIDE 20 MG TABLET PO SCH ×2 (09:59→17:37)
[2019-02-13] MEDS: ASPIRIN 81 MG TABLET, CHEWABLE PO SCH (09:59)
[2019-02-13] MEDS: LEVETIRACETAM 500 MG TABLET PO SCH ×2 (09:59→22:01)
[2019-02-13] MEDS: FLUTICASONE/VILANTEROL 200-25 MCG/DOSE IH SCH (10:00)
[2019-02-13] MEDS: LIDOCAINE 5% (700 MG) TRANSDERMAL ADH..PATCH TOP SCH (10:00)
[2019-02-13] MEDS: LOSARTAN POTASSIUM 25 MG TABLET PO SCH (10:02)
[2019-02-13] MEDS: SPIRONOLACTONE 25 MG TABLET PO SCH (10:02)
[2019-02-13] MEDS: PANTOPRAZOLE SODIUM 40 MG TABLET.DR PO SCH (10:02)
[2019-02-13] MEDS: TAMSULOSIN HCL 0.4 MG CAP.SR.24H PO SCH (10:03)
--- NOTE | 2019-02-13 11:34 | PDOC PROGRESS REPORT ---
Subjective Progress Note for:: 02/13/19 Reason For Visit: COPD EXACERBATION,PNUEMONIA 02/13/2019 Patient was admitted after suffering probable aspiration pneumonia secondary to cardiac arrest 3 days ago at [facility] Patient still running sats in the low 90s on 5 L, will need to be tested to see if he qualifies for home O2 prior to discharge Physical Exam Vital Signs: Temp Pulse Resp BP Pulse Ox 97.7 F 71 16 134/65 H 90 L 02/13/19 08:00 02/13/19 08:51 02/13/19 08:51 02/13/19 08:00 02/13/19 08:51 Intake & Output 02/12/19 02/13/19 02/14/19 06:59 06:59 06:59 Intake Total 750 1770 Output Total 1750 2000 Balance -1000 -230 General appearance: PRESENT: no acute distress, other - Patient asking to go home Respiratory exam: PRESENT: rhonchi Cardiovascular exam: PRESENT: RRR. ABSENT: diastolic murmur, rubs, systolic murmur Neurological exam: PRESENT: alert, awake, oriented to person, oriented to place, oriented to time, oriented to situation, CN II-XII grossly intact. ABSENT: motor sensory deficit Psychiatric exam: PRESENT: appropriate affect, normal mood. ABSENT: homicidal ideation, suicidal ideation Results Laboratory Results: 02/11/19 06:20 02/11/19 06:20 02/10/19 02:20 Troponin I < 0.012 Impressions: Chest X-Ray 02/10/19 02:35 IMPRESSION: 1. No acute pulmonary process identified. Low lung volumes. Assessment and Plan - Diagnosis (1) Aspiration pneumonia Qualifiers: Aspiration pneumonia type: unspecified Laterality: bilateral Lung location: unspecified part of lung Qualified Code(s): J69.0 - Pneumonitis due to inhalation of food and vomit Is this a current diagnosis for this admission?: Yes (2) COPD exacerbation Is this a current diagnosis for this admission?: Yes (3) Rib fracture Qualifiers: Encounter type: initial encounter Rib fracture type: single rib Fracture type: closed Laterality: right Qualified Code(s): S22.31XA - Fracture of one rib, right side, initial encounter for closed fracture Is this a current diagnosis for this admission?: Yes - Plan Summary Summary: 02/13/2019 Patient will have his oxygen discontinued and then ambulated to see if he qualifies for home O2 And is currently on Levaquin 500 mg p.o. daily Using pain medication for his fractured ribs Once we determine if patient needs home O2 we will set this up prior to discharge Anticipate discharge tomorrow - Time Time Spent with patient: 25-34 minutes
[2019-02-13] MEDS: ATORVASTATIN CALCIUM 10 MG TABLET PO SCH (22:01)
[2019-02-14] MEDS: HEPARIN SOD (PORCINE) 5,000 UNIT/ML 1 ML VIAL SUBCUT SCH ×2 (07:36→14:56)
[2019-02-14] MEDS: IPRATROPIUM/ALBUTEROL 0.5-2.5 MG/3 ML AMPUL NEB SCH (08:30)
[2019-02-14] MEDS: HYDROMORPHONE HCL 2 MG TABLET PO PRN ×2 (08:38→14:56)
[2019-02-14] MEDS: LOSARTAN POTASSIUM 25 MG TABLET PO SCH (11:00)
[2019-02-14] MEDS: SPIRONOLACTONE 25 MG TABLET PO SCH (11:00)
[2019-02-14] MEDS: TAMSULOSIN HCL 0.4 MG CAP.SR.24H PO SCH (11:00)
[2019-02-14] MEDS: LAMOTRIGINE 100 MG TABLET PO SCH (11:00)
[2019-02-14] MEDS: FUROSEMIDE 20 MG TABLET PO SCH (11:00)
[2019-02-14] MEDS: CARVEDILOL 3.125 MG TABLET PO SCH (11:00)
[2019-02-14] MEDS: GUAIFENESIN 600 MG TABLET.SA PO SCH (11:00)
[2019-02-14] MEDS: LEVETIRACETAM 500 MG TABLET PO SCH (11:00)
[2019-02-14] MEDS: ASPIRIN 81 MG TABLET, CHEWABLE PO SCH (11:00)
[2019-02-14] MEDS: PANTOPRAZOLE SODIUM 40 MG TABLET.DR PO SCH (11:01)
[2019-02-14] MEDS: LIDOCAINE 5% (700 MG) TRANSDERMAL ADH..PATCH TOP SCH (11:01)
[2019-02-14] MEDS: FLUTICASONE/VILANTEROL 200-25 MCG/DOSE IH SCH (11:01)
[2019-02-14] MEDS: LEVOFLOXACIN 500 MG TABLET PO SCH (11:01)
--- NOTE | 2019-02-14 13:47 | PDOC DISCHARGE SUMMARY ---
Impression - Admit/DC Date/PCP Admission Date/Primary Care Provider: 02/10/19 05:54 DILEEP MANRIQUEZ MD Discharge Date: 02/14/19 - Discharge Diagnosis (1) Aspiration pneumonia Is this a current diagnosis for this admission?: Yes (2) COPD exacerbation Is this a current diagnosis for this admission?: Yes (3) Rib fracture Is this a current diagnosis for this admission?: Yes - Assessment Summary: 02/13/2019 Patient will have his oxygen discontinued and then ambulated to see if he qualif ies for home O2 And is currently on Levaquin 500 mg p.o. daily Using pain medication for his fractured ribs Once we determine if patient needs home O2 we will set this up prior to discharge Anticipate discharge tomorrow 02/14/2019 Patient was discharged home today in good condition sent out on Levaquin 500 mg 1 tablet daily for 5 days to complete his 10-day course for aspiration pneumonia Percocet 10/325 number 20 tablets for his fractured ribs. This is in addition to his chronic pain medication Patient has qualified for home O2 this was ranged by discharge planning Patient will follow-up with his primary care provider in the next 7 days. Patient and his seems satisfied with today's discharge - Additional Information Resuscitation Status: Full Code Discharge Activity: Balance Activity w/Rest Referrals: DILEEP MANRIQUEZ MD [Primary Care Provider] - (Patient making their own follow-up appointment.) Prescriptions: Levofloxacin [Levaquin 500 mg Tablet] 500 mg PO DAILY #5 tablet Oxycodone HCl/Acetaminophen [Primlev 10-300 mg Tablet] 1.5 each PO Q4HP PRN #20 tablet PRN Reason: Home Medications: Albuterol Sulfate [Ventolin 0.083% Neb 2.5 mg/3 mL Ampul] 3 ml NEB Q6HP PRN 02/10/19 Aspirin [Aspirin 81 mg Chewable Tablet] 81 mg PO DAILY 02/10/19 Budesonide/Formoterol Fumarate [Symbicort HFA 160-4.5 mcg Inhaler 6 gm] 2 puff IH Q12 02/10/19 Carvedilol [Coreg 3.125 mg Tablet] 3.125 mg PO Q12 02/10/19 Furosemide [Lasix 20 mg Tablet] 20 mg PO BID 02/10/19 Hydromorphone HCl [Dilaudid 2 mg Tablet] 2 mg PO Q3HP PRN 02/10/19 Lamotrigine [Lamictal 100 mg Tablet] 100 mg PO Q12 02/10/19 Levetiracetam [Keppra 500 mg Tablet] 500 mg PO Q12 02/10/19 Lidocaine [Lidoderm 5% (700 mg) Transdermal Patch] 1 patch TOP DAILY 02/10/19 Losartan Potassium [Cozaar 25 mg Tablet] 25 mg PO DAILY 02/10/19 Nystatin [Mycostatin Cream 15 gm] 1 applic TOP DAILYP PRN 02/10/19 Omeprazole 40 mg PO DAILY 02/10/19 Pravastatin Sodium [Pravachol] 40 mg PO QHS 02/10/19 Spironolactone [Aldactone 25 mg Tablet] 25 mg PO DAILY 02/10/19 Tamsulosin HCl [Flomax 0.4 mg Cap.sr] 0.4 mg PO DAILY 02/10/19 Levetiracetam [Keppra 500 mg Tablet] 500 mg PO Q12 tablet 02/14/19 Levofloxacin [Levaquin 500 mg Tablet] 500 mg PO DAILY #5 tablet 02/14/19 Oxycodone HCl/Acetaminophen [Primlev 10-300 mg Tablet] 1.5 each PO Q4HP PRN #20 tablet 02/14/19 History of Present Illiness History of Present Illness: ARY YANEZ is a 68 year old male Physical Exam Vital Signs: Temp Pulse Resp BP Pulse Ox 97.7 F 71 20 123/68 93 02/14/19 07:50 02/14/19 08:32 02/14/19 08:32 02/14/19 07:50 02/14/19 08:32 Intake & Output 02/13/19 02/14/19 02/15/19 06:59 06:59 06:59 Intake Total 1770 1210 Output Total 1999 755 Balance -230 455 Results Laboratory Results: WBC 9.4 10^3/uL (4.0-10.5) 02/11/19 06:20 RBC 4.07 10^6/uL (4.35-5.55) L 02/11/19 06:20 Hgb 10.4 g/dL (13.5-17.0) L 02/11/19 06:20 Hct 31.3 % (37.9-51.0) L 02/11/19 06:20 MCV 77 fl (80-97) L 02/11/19 06:20 MCH 25.6 pg (27.0-33.4) L 02/11/19 06:20 MCHC 33.3 g/dL (32.0-36.0) 02/11/19 06:20 RDW 16.5 % (11.5-14.0) H 02/11/19 06:20 Plt Count 446 10^3/uL (150-450) 02/11/19 06:20 Lymph % (Auto) 21.2 % (13-45) 02/11/19 06:20 Collin % (Auto) 8.4 % (3-13) 02/11/19 06:20 Eos % (Auto) 0.1 % (0-6) 02/11/19 06:20 Baso % (Auto) 0.4 % (0-2) 02/11/19 06:20 Absolute Neuts (auto) 6.5 10^3/uL (1.7-8.2) 02/11/19 06:20 Absolute Lymphs (auto) 2.0 10^3/uL (0.5-4.7) 02/11/19 06:20 Absolute Monos (auto) 0.8 10^3/uL (0.1-1.4) 02/11/19 06:20 Absolute Eos (auto) 0.0 10^3/uL (0.0-0.6) 02/11/19 06:20 Absolute Basos (auto) 0.0 10^3/uL (0.0-0.2) 02/11/19 06:20 Seg Neutrophils % 69.9 % (42-78) 02/11/19 06:20 Carbonic Acid 1.11 mmol/L (1.05-1.35) 02/10/19 17:58 HCO3/H2CO3 Ratio 22:1 02/10/19 17:58 ABG pH 7.45 (7.35-7.45) 02/10/19 17:58 ABG pCO2 37.0 mmHg (35-45) 02/10/19 17:58 ABG pO2 57.6 mmHg (80-100) L 02/10/19 17:58 ABG HCO3 25.2 mmol/L (20-24) H 02/10/19 17:58 ABG Total CO2 26.3 mmol/L (23-27) 02/10/19 17:58 ABG O2 Saturation 91.3 % (94-98) L 02/10/19 17:58 ABG Base Excess 1.4 mmol/L 02/10/19 17:58 VBG pH 7.36 (7.30-7.42) 02/10/19 02:57 VBG pCO2 58.7 mmHg (35-63) 02/10/19 02:57 VBG HCO3 32.3 mmol/L (20-32) H 02/10/19 02:57 VBG Base Excess 5.4 mmol/L 02/10/19 02:57 FiO2 100% 02/10/19 17:58 Sodium 136.0 mmol/L (137-145) L 02/11/19 06:20 Potassium 4.2 mmol/L (3.6-5.0) 02/11/19 06:20 Chloride 99 mmol/L (98-107) 02/11/19 06:20 Carbon Dioxide 29 mmol/L (22-30) 02/11/19 06:20 Anion Gap 8 (5-19) 02/11/19 06:20 BUN 13 mg/dL (7-20) 02/11/19 06:20 Creatinine 0.69 mg/dL (0.52-1.25) 02/11/19 06:20 Est GFR ( Amer) > 60 (>60) 02/11/19 06:20 Est GFR (MDRD) Non-Af > 60 (>60) 02/11/19 06:20 Glucose 100 mg/dL (75-110) 02/11/19 06:20 Calcium 9.8 mg/dL (8.4-10.2) 02/11/19 06:20 Total Bilirubin 0.3 mg/dL (0.2-1.3) 02/10/19 02:20 Direct Bilirubin 0.1 mg/dL (0.0-0.4) 02/10/19 02:20 Neonat Total Bilirubin Not Reportable 02/10/19 02:20 Neonat Direct Bilirubin Not Reportable 02/10/19 02:20 Neonat Indirect Bili Not Reportable 02/10/19 02:20 AST 19 U/L (17-59) 02/10/19 02:20 ALT 12 U/L (<50) 02/10/19 02:20 Alkaline Phosphatase 85 U/L (38-126) 02/10/19 02:20 Troponin I < 0.012 ng/mL 02/10/19 02:20 Total Protein 7.4 g/dL (6.3-8.2) 02/10/19 02:20 Albumin 3.7 g/dL (3.5-5.0) 02/10/19 02:20 02/10/19 02:20 Troponin I < 0.012 Impressions: Chest X-Ray 02/10/19 02:35 IMPRESSION: 1. No acute pulmonary process identified. Low lung volumes. Stroke Is this a Stroke Patient?: No Acute Heart Failure - Is this a Heart Failure Patient?: No
[2019-02-14 16:33] VITALS: BP 95/54
== END 2019-02-14 17:13 | disposition home health service (06) | DRG 177 ==
LOC: ER 01:51 → EH 05:54 → 4S 07:00
PROVIDERS: ADMIT Internal Medicine; ATTEND Internal Medicine
DX: J69.0 Pneumonitis due to inhalation of food and vomit (principal); J96.01 Acute respiratory failure with hypoxia; S22.059A Unspecified fracture of T5-T6 vertebra, initial encounter for closed fracture; S22.089A Unspecified fracture of T11-T12 vertebra, initial encounter for closed fracture; S22.31XA Fracture of one rib, right side, initial encounter for closed fracture; J44.1 Chronic obstructive pulmonary disease with (acute) exacerbation; L03.115 Cellulitis of right lower limb; L97.819 Non-pressure chronic ulcer of other part of right lower leg with unspecified severity; I10 Essential (primary) hypertension; E78.5 Hyperlipidemia, unspecified; K21.9 Gastro-esophageal reflux disease without esophagitis; G40.909 Epilepsy, unspecified, not intractable, without status epilepticus; Y93.89 Activity, other specified; Y92.89 Other specified places as the place of occurrence of the external cause; Z79.51 Long term (current) use of inhaled steroids; Z79.899 Other long term (current) drug therapy; Z88.1 Allergy status to other antibiotic agents; Z88.0 Allergy status to penicillin; Z88.2 Allergy status to sulfonamides
CPT/HCPCS: 36415; 36600; 71046; 71275; 80048; 80053; 82803; 84484; 85025; 87040; 93005; 93010; 94640; 94660; 94667; 94668; 94799; 96374; 99285; J0696; J1644; J1885; J1956; J2930; J3490; J7620

== ENCOUNTER → 2019-03-08 | Outpatient (CLI) | payer MEDICARE ==
[2014-10-03 06:39] VITALS: BP 146/85
--- NOTE | 2019-03-08 17:04 | RADIOLOGY REPORT (SQ) ---
EXAM DESCRIPTION: CHEST 2 VIEWS COMPLETED DATE/TIME: 03/08/2019 3:34 pm REASON FOR STUDY: J69.0 PNEUMONITIS DUE TO INHALATION OF FOOD AND VOMIT, S22.31XA FRACTURE OF COMPARISON: 02/10/2019 EXAM PARAMETERS: NUMBER OF VIEWS: two views TECHNIQUE: Digital Frontal and Lateral radiographic views of the chest acquired. RADIATION DOSE: NA LIMITATIONS: none FINDINGS: LUNGS AND PLEURA: No opacities, masses or pneumothorax. No pleural effusion. MEDIASTINUM AND HILAR STRUCTURES: No masses or contour abnormalities. HEART AND VASCULAR STRUCTURES: Heart normal size. No evidence for failure. BONES: No acute findings. HARDWARE: None in the chest. OTHER: No other significant finding. IMPRESSION: NO ACUTE RADIOGRAPHIC FINDING IN THE CHEST. TECHNICAL DOCUMENTATION: JOB ID: [id number] [email or web address]- All Rights Reserved Reading location - IP/workstation name: [email or web address]
== END ==
LOC: RAD 15:22
PROVIDERS: ATTEND Family Medicine
DX: S22.31XA Fracture of one rib, right side, initial encounter for closed fracture (principal); J69.0 Pneumonitis due to inhalation of food and vomit; X58.XXXA Exposure to other specified factors, initial encounter
CPT/HCPCS: 71046

== ENCOUNTER → 2019-08-08 | Outpatient (CLI) | payer MEDICARE ==
--- NOTE | 2019-08-08 14:40 | RADIOLOGY REPORT (SQ) ---
EXAM DESCRIPTION: CHEST 2 VIEWS IMAGES COMPLETED DATE/TIME: 08/08/2019 2:19 pm REASON FOR STUDY: J43.2 CENTRILOBULAR EMPHYSEMA COMPARISON: 03/08/2019 EXAM PARAMETERS: NUMBER OF VIEWS: two views TECHNIQUE: Digital Frontal and Lateral radiographic views of the chest acquired. RADIATION DOSE: NA LIMITATIONS: none FINDINGS: LUNGS AND PLEURA: Emphysematous change with increased AP diameter and flattening of the he midiaphragm. Unchanged linear left lingular opacities, likely scarring. No pleural effusion or pneu mothorax MEDIASTINUM AND HILAR STRUCTURES: No masses or contour abnormalities. HEART AND VASCULAR STRUCTURES: Heart normal size. No evidence for failure. BONES: No acute findings. HARDWARE: None in the chest. OTHER: No other significant finding. IMPRESSION: Stable linear lingular opacity, likely scarring. Emphysematous change. TECHNICAL DOCUMENTATION: JOB ID: [id number] 2010 [employer]- All Rights Reserved Reading location - IP/workstation name: [email or web address]
== END ==
LOC: RAD 13:24
PROVIDERS: ATTEND Registered Nurse
DX: J43.2 Centrilobular emphysema (principal)
CPT/HCPCS: 71046

== ENCOUNTER 2019-09-01 09:57 | Inpatient (IN) | payer MEDICARE ==
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
[2019-09-01] MEDS ORDERED: LORAZEPAM INJ 2 MG/1 ML VIAL IV ONE ×2 (10:42→12:01)
[2019-09-01] MEDS ORDERED: LEVETIRACETAM INJ/PF 500 MG/5 ML SDV IV ONE (10:47)
[2019-09-01 11:08] LABS: ABSOLUTE EOSINOPHILS # (AUTO) 0.1 10^3/uL (0.0-0.6); ABSOLUTE LYMPHOCYTES (AUTO) 0.8 10^3/uL (0.5-4.7); ABSOLUTE MONOCYTES (AUTO) 0.4 10^3/uL (0.1-1.4); ABSOLUTE NEUT (AUTO) 6.8 10^3/uL (1.7-8.2); BASOPHILS % (AUTO) 0.5 % (0-2); EOSINOPHILS % (AUTO) 1.4 % (0-6); HEMATOCRIT 28.8 % (37.9-51.0); HEMOGLOBIN 9.4 g/dL (13.5-17.0); LYMPHOCYTES % (AUTO) 9.5 % (13-45); MEAN CORPUSCULAR HEMOGLOBIN 26.3 pg (27.0-33.4); MEAN CORPUSCULAR HGB CONC 32.5 g/dL (32.0-36.0); MEAN CORPUSCULAR VOLUME 81 fl (80-97); MONOCYTES % (AUTO) 4.9 % (3-13); PLATELET COUNT 405 10^3/uL (150-450); RED BLOOD COUNT 3.56 10^6/uL (4.35-5.55); RED CELL DISTRIBUTION WIDTH 15.9 % (11.5-14.0); SEGMENTED NEUTROPHILS % (AUTO) 83.7 % (42-78); TOTAL CELLS COUNTED % (AUTO) 100 %; WHITE BLOOD COUNT 8.1 10^3/uL (4.0-10.5)
[2019-09-01] MEDS ORDERED: LEVETIRACETAM 1000 MG/NACL-ISO 1,000 MG/100 ML RTUPB IV ONE (11:12)
[2019-09-01 11:13] LABS: ALBUMIN 3.2 g/dL (3.5-5.0); ALKALINE PHOSPHATASE 79 U/L (38-126); ANION GAP 8 (5-19); ASPARTATE AMINO TRANSFERASE 18 U/L (17-59); BILIRUBIN,TOTAL 0.1 mg/dL (0.2-1.3); BLOOD UREA NITROGEN 17 mg/dL (7-20); CALCIUM 8.4 mg/dL (8.4-10.2); CARBON DIOXIDE 29 mmol/L (22-30); CHLORIDE 101 mmol/L (98-107); GLUCOSE 125 mg/dL (75-110); POTASSIUM 3.1 mmol/L (3.6-5.0); TOTAL PROTEIN 6.4 g/dL (6.3-8.2)
[2019-09-01] MEDS ORDERED: POTASSI CL 20 MEQ/50 ML RIDER 20 MEQ/50 ML RTUPB IV ONE (11:33)
[2019-09-01] MEDS ORDERED: HALOPERIDOL LACTATE INJ 5 MG/1 ML VIAL IV ONE ×2 (11:48→12:44)
[2019-09-01] MEDS ORDERED: HALOPERIDOL LACTATE INJ 5 MG/1 ML VIAL ONE (11:49)
[2019-09-01] MEDS ORDERED: MIDAZOLAM 2 MG/2 ML INJ IV ONE (12:23)
[2019-09-01] MEDS ORDERED: CEFTRIAXONE 1 GM/D5W RTU 1 GM/50 ML RTUPB IV ONE (12:28)
[2019-09-01] MEDS ORDERED: FENTANYL CITRATE INJ/PF 100 MCG/2 ML AMPUL IV ONE (13:20)
[2019-09-01] MEDS ORDERED: SUCCINYLCHOLINE CHLORIDE INJ 200 MG/10 ML VIAL ONE (13:45)
[2019-09-01] MEDS ORDERED: ETOMIDATE INJ/PF 20 MG/10 ML SDV IV ONE ×2 (13:51→14:18)
[2019-09-01] MEDS ORDERED: NORMAL SALINE 1000 ML 1,000 ML IV ONE (14:05)
[2019-09-01] MEDS: PROPOFOL 1,000 MG/100 ML INFUS..BTL IV PRN ×3 (14:10→21:36)
[2019-09-01] MEDS ORDERED: SUCCINYLCHOLINE CHLORIDE INJ 200 MG/10 ML VIAL IV ONE ×2 (14:18→14:34)
[2019-09-01] MEDS ORDERED: ACETAMINOPHEN 325 MG TABLET PO PRN (14:31)
[2019-09-01] MEDS ORDERED: PROPOFOL 1,000 MG/100 ML INFUS..BTL IV PRN (14:31)
[2019-09-01] MEDS ORDERED: HYDROMORPHONE HCL INJ/PF 2 MG/ML AMPULE IV PRN (14:42)
[2019-09-01] MEDS ORDERED: PHARMACY COMMUNICATION ORDER MC NR (14:45)
[2019-09-01] MEDS ORDERED: ACETAMINOPHEN 325 MG TABLET NG PRN (15:00)
--- NOTE | 2019-09-01 16:12 | RADIOLOGY REPORT (SQ) ---
EXAM DESCRIPTION: CT HEAD WITHOUT IMAGES COMPLETED DATE/TIME: 09/01/2019 3:57 pm REASON FOR STUDY: 1; fall COMPARISON: None. TECHNIQUE: Axial images acquired through the brain without intravenous contrast. Images reviewed wi th bone, brain and subdural windows. Additional sagittal and coronal reconstructions were generated. Images stored on PACS. All CT scanners at this facility use dose modulation, iterative reconstruction, and/or weight based d osing when appropriate to reduce radiation dose to as low as reasonably achievable (ALARA). [facility]: Dose Right [facility]: CareDose [facility]: Dose Right [facility]: Teradose 4D [facility]: Smart Phone Warrior RADIATION DOSE: CT Rad equipment meets quality standard of care and radiation dose reduction techniq ues were employed. CTDIvol: 53.2 mGy. DLP: 1150 mGy-cm. mGy. LIMITATIONS: None. FINDINGS: VENTRICLES: Normal size and contour. CEREBRUM: No masses. No hemorrhage. No midline shift. No evidence for acute infarction. Normal gra y/white matter differentiation. No areas of low density in the white matter. CEREBELLUM: No masses. No hemorrhage. No alteration of density. No evidence for acute infarction. EXTRAAXIAL SPACES: No fluid collections. No masses. ORBITS AND GLOBE: No intra- or extraconal masses. Normal contour of globe without masses. CALVARIUM: No fracture. PARANASAL SINUSES: No fluid or mucosal thickening. SOFT TISSUES: No mass or hematoma. OTHER: No other significant finding. IMPRESSION: NORMAL BRAIN CT WITHOUT CONTRAST. EVIDENCE OF ACUTE STROKE: NO. COMMENT: Quality ID # [id number]: Final reports with documentation of one or more dose reduction techniques (e.g., Automated exposure control, adjustment of the mA and/or kV according to patient size, use of iterative reconstruction technique) TECHNICAL DOCUMENTATION: JOB ID: [id number] 2010 [employer]- All Rights Reserved Reading location - IP/workstation name: [email or web address]
--- NOTE | 2019-09-01 16:17 | RADIOLOGY REPORT (SQ) ---
EXAM DESCRIPTION: CHEST SINGLE VIEW IMAGES COMPLETED DATE/TIME: 09/01/2019 3:58 pm REASON FOR STUDY: 1; s/p intubation COMPARISON: AP chest 08/08/2019 EXAM PARAMETERS: NUMBER OF VIEWS: One view. TECHNIQUE: Single frontal radiographic view of the chest acquired. RADIATION DOSE: NA LIMITATIONS: None. FINDINGS: LUNGS AND PLEURA: No opacities, masses or pneumothorax. No pleural effusion. MEDIASTINUM AND HILAR STRUCTURES: No masses. Contour normal. HEART AND VASCULAR STRUCTURES: Heart normal in size. Normal vasculature. BONES: No acute findings. HARDWARE: Endotracheal tube tip 1 cm above the costa. Nasogastric tube tip and side port in the sto mach. Findings discussed with Dr. Lock OTHER: No other significant finding. IMPRESSION: Endotracheal tube low, about a cm above the costa. Nasogastric tube tip and side port in the stomach No focal infiltrates TECHNICAL DOCUMENTATION: JOB ID: [id number] 2010 [employer]- All Rights Reserved Reading location - IP/workstation name: [email or web address]
[2019-09-01] MEDS: PANTOPRAZOLE SODIUM 40 MG VIAL IV SCH ×2 (16:22→21:39)
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
--- NOTE | 2019-09-01 17:02 | EKG REPORT ---
SEVERITY:- ABNORMAL ECG - SINUS TACHYCARDIA MULTIPLE ATRIAL PREMATURE COMPLEXES RIGHT BUNDLE BRANCH BLOCK : Confirmed by: Petey Bedoya MD 01-Sep-2019 17:00:56
[2019-09-01] MEDS ORDERED: POTASSI CL 20 MEQ/50 ML RIDER 40 MEQ/100 ML RTUPB IV ONE (18:46)
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
[2019-09-01] MEDS: ENOXAPARIN SODIUM INJ 40 MG/0.4 ML DISP.SYRIN SUBCUT SCH (18:52)
[2019-09-01] MEDS: NORMAL SALINE 1000 ML 1,000 ML IV PRN (18:58)
[2019-09-01] MEDS ORDERED: DEXTROSE 40% GEL 15 GM TUBE PO PRN ×2 (19:33)
[2019-09-01] MEDS ORDERED: DEXTROSE 50%-WATER 25 GM/50 ML DISP.SYRIN IV PRN ×2 (19:33)
[2019-09-01] MEDS ORDERED: GLUCAGON,HUMAN RECOMB 1 MG INJ IM PRN (19:33)
[2019-09-01 20:22] LABS: ARTERIAL BLOOD H2CO3 1.19 mmol/L (1.05-1.35); ARTERIAL BLOOD O2 SATURATION 99.1 % (94-98); ARTERIAL BLOOD PCO2 39.7 mmHg (35-45); ARTERIAL BLOOD PH 7.47 (7.35-7.45); ARTERIAL BLOOD TOTAL CO2 29.3 mmol/L (23-27)
[2019-09-01 20:23] LABS: ARTERIAL BLOOD FIO2 40%
[2019-09-01] MEDS ORDERED: LEVETIRACETAM 1,000 MG in NORMAL SALINE 100 ML IV SCH (22:00)
[2019-09-01] MEDS ORDERED: LEVETIRACETAM 1000 MG/NACL-ISO 1,000 MG/100 ML RTUPB IV SCH (22:00)
[2019-09-01 22:55] LABS: ANION GAP 8 (5-19); BLOOD UREA NITROGEN 12 mg/dL (7-20); CALCIUM 8.4 mg/dL (8.4-10.2); CARBON DIOXIDE 27 mmol/L (22-30); CHLORIDE 105 mmol/L (98-107); CREATINE KINASE 448 U/L (55-170); GLUCOSE 90 mg/dL (75-110); POTASSIUM 3.3 mmol/L (3.6-5.0)
[2019-09-01] MEDS: INSULIN REG, HUMAN 100 UNIT/ML 3 ML VIAL (PYX) SUBCUT SCH (23:30)
[2019-09-02] MEDS: PROPOFOL 1,000 MG/100 ML INFUS..BTL IV PRN (01:14)
[2019-09-02] MEDS ORDERED: LABETALOL HCL INJ 20 MG/4 ML DISP.SYRIN IV ONE ×2 (02:50→02:52)
[2019-09-02] MEDS ORDERED: DEXMEDETOMIDINE IN 0.9 % NACL 400 MCG/100 ML RTUPB IV ONE (02:53)
[2019-09-02] MEDS: DEXMEDETOMIDINE IN 0.9 % NACL 400 MCG/100 ML RTUPB IV PRN ×3 (03:15→12:59)
[2019-09-02] MEDS: PHOSPHORUS #1 250 MG TABLET NG SCH ×3 (03:37→20:43)
[2019-09-02] MEDS: MAGNESIUM SULFATE/D5W 1 GM/100 ML RTUPB IV SCH ×7 (03:38→12:10)
[2019-09-02] MEDS: POTASSI CL 20 MEQ/50 ML RIDER 20 MEQ/50 ML RTUPB IV SCH ×3 (03:39→08:30)
[2019-09-02] MEDS: NORMAL SALINE 1000 ML 1,000 ML IV PRN ×2 (03:48→12:09)
[2019-09-02] MEDS: ACETAMINOPHEN SOLN 325 MG/10.15 ML UDCUP NG PRN ×2 (03:50→12:09)
[2019-09-02 05:26] LABS: ABSOLUTE BASOPHILS # (AUTO) 0.1 10^3/uL (0.0-0.2); ABSOLUTE EOSINOPHILS # (AUTO) 0.1 10^3/uL (0.0-0.6); ABSOLUTE LYMPHOCYTES (AUTO) 1.2 10^3/uL (0.5-4.7); ABSOLUTE MONOCYTES (AUTO) 0.7 10^3/uL (0.1-1.4); ABSOLUTE NEUT (AUTO) 10.2 10^3/uL (1.7-8.2); BASOPHILS % (AUTO) 0.7 % (0-2); EOSINOPHILS % (AUTO) 0.4 % (0-6); HEMATOCRIT 28.9 % (37.9-51.0); HEMOGLOBIN 9.3 g/dL (13.5-17.0); LYMPHOCYTES % (AUTO) 9.8 % (13-45); MEAN CORPUSCULAR HGB CONC 32.2 g/dL (32.0-36.0); MEAN CORPUSCULAR VOLUME 81 fl (80-97); MONOCYTES % (AUTO) 5.9 % (3-13); PLATELET COUNT 397 10^3/uL (150-450); RED BLOOD COUNT 3.58 10^6/uL (4.35-5.55); RED CELL DISTRIBUTION WIDTH 16.3 % (11.5-14.0); SEGMENTED NEUTROPHILS % (AUTO) 83.2 % (42-78); TOTAL CELLS COUNTED % (AUTO) 100 %; WHITE BLOOD COUNT 12.3 10^3/uL (4.0-10.5)
[2019-09-02] MEDS ORDERED: MORPHINE SULFATE 10 MG/ML INJ IV ONE (05:27)
[2019-09-02] MEDS: INSULIN REG, HUMAN 100 UNIT/ML 3 ML VIAL (PYX) SUBCUT SCH ×3 (05:50→18:00)
[2019-09-02 07:17] LABS: APPEARANCE,URINE CLEAR; BILIRUBIN,URINE NEGATIVE (NEGATIVE); COLOR,URINE YELLOW; GLUCOSE, URINE NEGATIVE (NEGATIVE); KETONES,URINE NEGATIVE (NEGATIVE); LEUKOCYTE ESTERASE,URINE TRACE (NEGATIVE); NITRITE,URINE NEGATIVE (NEGATIVE); PROTEIN,URINE 30 mg/dL (NEGATIVE); URINE SPECIFIC GRAVITY 1.019; UROBILINOGEN,URINE NEGATIVE mg/dL (<2.0)
[2019-09-02] MEDS ORDERED: MAGNESIUM SULFATE/D5W 2 GM/200 ML RTUPB IV ONE (07:37)
--- NOTE | 2019-09-02 08:40 | PDOC CRITICAL CARE PROG REPORT ---
General Date:: 09/02/19 ICU Day:: 2 Ventilator Day:: 2 Hospital Day:: 2 Resuscitation Status: Full Code Medical Power of Senior Informatica Developer: Events in the past 12 to 24 Hours:: Intubated for combativeness, try to extubate today. Review of systems relevant to events:: Neurological. Reason for ICU Addmission:: Need for intubation for CT and management - Medications: Medications reviewed and adjusted accordingly: Yes Vasopressors:: None Sedation:: Precedx, diprivan. Physical Exam Vital Signs: Temp Pulse Resp BP Pulse Ox 101.7 F H 91 11 L 118/65 95 09/02/19 04:50 09/01/19 18:20 09/02/19 06:30 09/02/19 06:30 09/02/19 06:30 Intake & Output 09/01/19 09/02/19 09/03/19 06:59 06:59 06:59 Intake Total 2821 Output Total 1150 Balance 1671 Weight 98.7 kg Weight/Height Weight 98.7 kg Height 5 ft 10 in General appearance: PRESENT: no acute distress Head exam: PRESENT: atraumatic, normocephalic Eye exam: PRESENT: conjunctiva pink, EOMI, PERRLA. ABSENT: scleral icterus Ear exam: PRESENT: normal external ear exam Mouth exam: PRESENT: moist, tongue midline Respiratory exam: PRESENT: clear to auscultation fitz. ABSENT: rales, rhonchi, wheezes Cardiovascular exam: PRESENT: RRR. ABSENT: diastolic murmur, rubs, systolic murmur GI/Abdominal exam: PRESENT: normal bowel sounds, soft. ABSENT: distended, guarding, mass, organolmegaly, rebound, tenderness Rectal exam: PRESENT: deferred Gentrourinary exam: PRESENT: indwelling catheter Extremities exam: PRESENT: other - R lower leg with compression jeff and wet to dry dressings. No change in swelling or erythema. Neurological exam: PRESENT: altered, other - Sedated. Skin exam: PRESENT: dry, warm Tubes/Lines: PRESENT: Endotracheal Tube, Nasogastic Tube Laboratory/Radiographs Laboratory Results: 09/02/19 04:58 09/02/19 04:58 09/01/19 09/01/19 09/01/19 10:13 10:13 13:14 WBC 8.1 RBC 3.56 L Hgb 9.4 L Hct 28.8 L MCV 81 MCH 26.3 L MCHC 32.5 RDW 15.9 H Plt Count 405 Seg Neutrophils % 83.7 H Carbonic Acid HCO3/H2CO3 Ratio ABG pH ABG pCO2 ABG pO2 ABG HCO3 ABG O2 Saturation ABG Base Excess FiO2 Sodium 137.8 Potassium 3.1 L Chloride 101 Carbon Dioxide 29 Anion Gap 8 BUN 17 Creatinine 0.77 Est GFR ( Amer) > 60 Est GFR (Non-Af Amer) Glucose 125 H Lactic Acid 1.5 Calcium 8.4 Phosphorus Magnesium Total Bilirubin 0.1 L AST 18 Alkaline Phosphatase 79 Total Protein 6.4 Albumin 3.2 L Urine Color Urine Appearance Urine pH Ur Specific [place] Urine Protein Urine Glucose (UA) Urine Ketones Urine Blood Urine Nitrite Ur Leukocyte Esterase Urine WBC (Auto) Urine RBC (Auto) 09/01/19 09/01/19 09/02/19 20:05 22:00 04:58 WBC 12.3 H RBC 3.58 L Hgb 9.3 L Hct 28.9 L MCV 81 MCH 26.0 L MCHC 32.2 RDW 16.3 H Plt Count 397 Seg Neutrophils % 83.2 H Carbonic Acid 1.19 HCO3/H2CO3 Ratio 23:1 ABG pH 7.47 H ABG pCO2 39.7 ABG pO2 153.0 H ABG HCO3 28.0 H ABG O2 Saturation 99.1 H ABG Base Excess 4.0 FiO2 40% Sodium 139.9 Potassium 3.3 L Chloride 105 Carbon Dioxide 27 Anion Gap 8 BUN 12 Creatinine 0.67 Est GFR ( Amer) > 60 Est GFR (Non-Af Amer) Glucose 90 Lactic Acid Calcium 8.4 Phosphorus 3.0 Magnesium 1.2 L* Total Bilirubin AST Alkaline Phosphatase Total Protein Albumin Urine Color Urine Appearance Urine pH Ur Specific [place] Urine Protein Urine Glucose (UA) Urine Ketones Urine Blood Urine Nitrite Ur Leukocyte Esterase Urine WBC (Auto) Urine RBC (Auto) 09/02/19 09/02/19 04:58 06:40 WBC RBC Hgb Hct MCV MCH MCHC RDW Plt Count Seg Neutrophils % Carbonic Acid HCO3/H2CO3 Ratio ABG pH ABG pCO2 ABG pO2 ABG HCO3 ABG O2 Saturation ABG Base Excess FiO2 Sodium Cancelled Potassium Cancelled Chloride Cancelled Carbon Dioxide Cancelled Anion Gap Cancelled BUN Cancelled Creatinine Cancelled Est GFR ( Amer) Cancelled Est GFR (Non-Af Amer) Cancelled Glucose Cancelled Lactic Acid Calcium Cancelled Phosphorus Magnesium Total Bilirubin AST Alkaline Phosphatase Total Protein Albumin Urine Color YELLOW Urine Appearance CLEAR Urine pH 6.0 Ur Specific [place] 1.019 Urine Protein 30 H Urine Glucose (UA) NEGATIVE Urine Ketones NEGATIVE Urine Blood NEGATIVE Urine Nitrite NEGATIVE Ur Leukocyte Esterase TRACE H Urine WBC (Auto) 7 Urine RBC (Auto) 2 09/01/19 22:00 Creatine Kinase 448 H Impressions: Head CT 09/01/19 10:29 IMPRESSION: NORMAL BRAIN CT WITHOUT CONTRAST. EVIDENCE OF ACUTE STROKE: NO. Chest X-Ray 09/01/19 14:04 IMPRESSION: Endotracheal tube low, about a cm above the costa. Nasogastric tube tip and side port in the stomach No focal infiltrates All labs, radiographs, diagnostic studies and EKGs were personally reviewed: Yes In addition, reports of radiographic and diagnostic studies were read: Yes Assessment and Plan - Diagnosis (1) Altered mental status Qualifiers: Altered mental status type: disorientation Qualified Code(s): R41.0 - Disorientation, unspecified Is this a current diagnosis for this admission?: Yes Plan: Will cut back on sedation and gauge level of conscousness. (2) Combative behavior Is this a current diagnosis for this admission?: Yes Plan: Lighten sedation. (3) Seizure Is this a current diagnosis for this admission?: Yes (4) Cellulitis of right leg Is this a current diagnosis for this admission?: Yes Plan: Continue keppra. (5) COPD (chronic obstructive pulmonary disease) Qualifiers: COPD type: unspecified COPD Qualified Code(s): J44.9 - Chronic obstructive pulmonary disease, unspecified Is this a current diagnosis for this admission?: Yes Plan: Inactive. (6) Chronic back pain Qualifiers: Back pain location: low back pain Back pain laterality: midline Sciatica presence: without sciatica Qualified Code(s): M54.5 - Low back pain; G89.29 - Other chronic pain Is this a current diagnosis for this admission?: Yes Plan: He seems to be doing better with morphine. Dilaudid stopped. Plan Summary: If he is more appropriate, extubate today. Critical Time Critical Time (minutes): 35 Level of Care: ICU Anticipated discharge: Home Within: within 48 hours -: 1. The care of a critical patient is a dynamic process. This note is a repres entative synopsis but static in nature. The timeframe for treatments given in order is not necessarily the actual time these treatments may have been done. 2. This patient requires critical care secondary to ongoing requirements for therapy not offered or safe outside the critical care environment. Transfer to a lower level of care will result in altered life or limb morbidity and mortality. 3. Multidisciplinary rounds completed. 4. ABCDE bundle addressed.
[2019-09-02] MEDS: PANTOPRAZOLE SODIUM 40 MG VIAL IV SCH (09:10)
[2019-09-02] MEDS: ENOXAPARIN SODIUM INJ 40 MG/0.4 ML DISP.SYRIN SUBCUT SCH (09:10)
--- NOTE | 2019-09-02 09:28 | EKG REPORT ---
SEVERITY:- ABNORMAL ECG - SINUS RHYTHM RIGHT BUNDLE BRANCH BLOCK, COMPLETE NEW BIPHASIC T WAVES ANTERIOR LEADS : Confirmed by: Peety Bedoya MD 02-Sep-2019 09:27:53
[2019-09-02] MEDS ORDERED: LEVETIRACETAM 1000 MG/NACL-ISO 1,000 MG/100 ML RTUPB IV SCH (10:00)
[2019-09-02 10:51] LABS: ANION GAP 7 (5-19); BLOOD UREA NITROGEN 10 mg/dL (7-20); CALCIUM 7.9 mg/dL (8.4-10.2); CARBON DIOXIDE 24 mmol/L (22-30); CHLORIDE 108 mmol/L (98-107); GLUCOSE 130 mg/dL (75-110); POTASSIUM 3.7 mmol/L (3.6-5.0)
[2019-09-02] MEDS ORDERED: DESONIDE MC SCH (13:15)
[2019-09-02] MEDS ORDERED: ECONAZOLE NITRATE TOP SCH (13:15)
[2019-09-02] MEDS ORDERED: BETAMETHASONE DIPROPIONATE TOP SCH (13:15)
[2019-09-02] MEDS ORDERED: LEVETIRACETAM 1,000 MG in NORMAL SALINE 100 ML IV SCH (14:00)
[2019-09-02] MEDS: ALBUTEROL SULFATE 0.042% NEB (1.25 MG/3 ML) AMPUL NEB PRN (18:09)
[2019-09-02] MEDS ORDERED: MORPHINE SULFATE 10 MG/ML INJ IV PRN (19:13)
[2019-09-02] MEDS ORDERED: POTASSI CL 20 MEQ/50 ML RIDER 20 MEQ/50 ML RTUPB IV SCH (19:15)
[2019-09-02] MEDS ORDERED: BUDESONIDE NEB 0.25 MG/2 ML AMPUL NEB ONE (20:00)
[2019-09-02] MEDS ORDERED: IPRATROPIUM/ALBUTEROL 0.5-2.5 MG/3 ML AMPUL NEB ONE ×2 (20:00→21:00)
[2019-09-02] MEDS ORDERED: POTASSIUM CHLORIDE 10 MEQ TABLET.ER PO ONE (20:30)
[2019-09-02] MEDS ORDERED: FLUTICASONE PROPIONATE HFA 110 MCG/PUFF 12 GM MDI IH SCH (22:00)
[2019-09-02] MEDS ORDERED: SALMETEROL XINAFOATE DISKUS 50 MCG/1 DOSE 28 DOSE IH SCH (22:00)
[2019-09-03] MEDS: INSULIN REG, HUMAN 100 UNIT/ML 3 ML VIAL (PYX) SUBCUT SCH ×2 (00:01→06:32)
[2019-09-03] MEDS: OXYCODONE HCL IR 5 MG TABLET PO PRN ×3 (01:45→22:36)
[2019-09-03] MEDS: IPRATROPIUM/ALBUTEROL 0.5-2.5 MG/3 ML AMPUL NEB SCH ×4 (02:28→20:23)
[2019-09-03] MEDS ORDERED: LABETALOL HCL INJ 20 MG/4 ML DISP.SYRIN IV ONE ×3 (04:00→16:47)
[2019-09-03 04:25] LABS: ABSOLUTE BASOPHILS # (AUTO) 0.1 10^3/uL (0.0-0.2); ABSOLUTE EOSINOPHILS # (AUTO) 0.1 10^3/uL (0.0-0.6); ABSOLUTE MONOCYTES (AUTO) 0.7 10^3/uL (0.1-1.4); ABSOLUTE NEUT (AUTO) 8.9 10^3/uL (1.7-8.2); BASOPHILS % (AUTO) 0.6 % (0-2); EOSINOPHILS % (AUTO) 0.5 % (0-6); HEMATOCRIT 31.7 % (37.9-51.0); HEMOGLOBIN 10.1 g/dL (13.5-17.0); LYMPHOCYTES % (AUTO) 16.7 % (13-45); MEAN CORPUSCULAR HGB CONC 31.9 g/dL (32.0-36.0); MEAN CORPUSCULAR VOLUME 82 fl (80-97); MONOCYTES % (AUTO) 6.1 % (3-13); PLATELET COUNT 474 10^3/uL (150-450); RED BLOOD COUNT 3.88 10^6/uL (4.35-5.55); RED CELL DISTRIBUTION WIDTH 16.2 % (11.5-14.0); SEGMENTED NEUTROPHILS % (AUTO) 76.1 % (42-78); TOTAL CELLS COUNTED % (AUTO) 100 %; WHITE BLOOD COUNT 11.7 10^3/uL (4.0-10.5)
[2019-09-03 04:41] LABS: ANION GAP 10 (5-19); BLOOD UREA NITROGEN 7 mg/dL (7-20); CALCIUM 8.4 mg/dL (8.4-10.2); CARBON DIOXIDE 24 mmol/L (22-30); CHLORIDE 107 mmol/L (98-107); GLUCOSE 106 mg/dL (75-110); PHOSPHORUS 3.3 mg/dL (2.5-4.5); POTASSIUM 3.4 mmol/L (3.6-5.0)
[2019-09-03] MEDS ORDERED: IPRATROPIUM/ALBUTEROL 0.5-2.5 MG/3 ML AMPUL NEB SCH (06:00)
[2019-09-03] MEDS: BUDESONIDE NEB 0.25 MG/2 ML AMPUL NEB SCH ×2 (07:33→20:23)
[2019-09-03] MEDS: ENOXAPARIN SODIUM INJ 40 MG/0.4 ML DISP.SYRIN SUBCUT SCH (10:18)
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
[2019-09-03] MEDS: LEVETIRACETAM 500 MG TABLET PO SCH ×2 (12:27→22:37)
[2019-09-03] MEDS: ALBUTEROL SULFATE 0.042% NEB (1.25 MG/3 ML) AMPUL NEB PRN (12:43)
[2019-09-03] MEDS ORDERED: MORPHINE SULFATE 10 MG/ML INJ IV ONE (15:03)
[2019-09-03] MEDS ORDERED: LABETALOL HCL INJ 20 MG/4 ML DISP.SYRIN IV PRN (16:44)
[2019-09-03] MEDS: NYSTATIN TOPICAL POWDER 15 GM TP SCH (17:00)
[2019-09-04] MEDS: IPRATROPIUM/ALBUTEROL 0.5-2.5 MG/3 ML AMPUL NEB SCH ×3 (02:10→13:48)
[2019-09-04] MEDS: OXYCODONE HCL IR 5 MG TABLET PO PRN ×3 (03:35→12:40)
[2019-09-04] MEDS: BUDESONIDE NEB 0.25 MG/2 ML AMPUL NEB SCH (07:56)
[2019-09-04] MEDS: NYSTATIN TOPICAL POWDER 15 GM TP SCH (09:34)
[2019-09-04] MEDS: ENOXAPARIN SODIUM INJ 40 MG/0.4 ML DISP.SYRIN SUBCUT SCH (09:35)
[2019-09-04] MEDS: LEVETIRACETAM 500 MG TABLET PO SCH (09:36)
[2019-09-04] MEDS ORDERED: POTASSIUM CHLORIDE 10 MEQ TABLET.ER PO ONE (10:52)
--- NOTE | 2019-09-04 10:54 | PDOC DISCHARGE SUMMARY ---
Impression - Admit/DC Date/PCP Admission Date/Primary Care Provider: 09/01/19 14:47 DILEEP MANRIQUEZ MD Discharge Date: 09/04/19 - Additional Information Resuscitation Status: Full Code Referrals: WOUND CARE [Outside] - 09/12/19 10:00 am NASIMA HOLLOWAY MD [ACTIVE STAFF] - (Will call you with Apt date and time) Prescriptions: Albuterol Sulfate [Albuterol Sulfate Hfa] 2 puff IH Q4 PRN #1 hfa.aer.ad PRN Reason: Shortness Of Breath Fluticasone/Vilanterol [Breo 100-25 Mcg Ellipta 14 Dose/Dpi] 1 inh IH DAILY #1 inhaler Losartan Potassium [Cozaar 50 mg Tablet] 50 mg PO DAILY #30 tablet Levetiracetam [Keppra 500 mg Tablet] 500 mg PO Q12 #60 tablet Home Medications: Albuterol Sulfate [Ventolin Hfa 8 gm Mdi (1 Mdi/ER Disp)] 2 puff IH QIDP PRN 0 09/01/19 Betamethasone Dipropionate 1 applic TOP BID 09/01/19 Desonide [Tridesilon] 60 gm TP BID 09/01/19 Econazole Nitrate 1 applic TOP BID 09/01/19 Guaifenesin/D-Methorphan Hb [Robitussin-Dm Syrup 10 ml Udcup] 10 ml PO QIDP PRN 09/01/19 Ibuprofen [Motrin 800 mg Tablet] 800 mg PO TIDP PRN 09/01/19 Oxycodone HCl/Acetaminophen [Oxycodone-Acetaminophen 10-325] 1 each PO QID 09/01/19 Albuterol Sulfate [Albuterol Sulfate Hfa] 2 puff IH Q4 PRN #1 hfa.aer.ad 09/04/19 Fluticasone/Vilanterol [Breo 100-25 Mcg Ellipta 14 Dose/Dpi] 1 inh IH DAILY #1 inhaler 09/04/19 Levetiracetam [Keppra 500 mg Tablet] 500 mg PO Q12 #60 tablet 09/04/19 Losartan Potassium [Cozaar 50 mg Tablet] 50 mg PO DAILY #30 tablet 09/04/19 History of Present Illiness History of Present Illness: ARY YANEZ is a 69 year old male who is non-compliant according to , with a known seizure history. She heard some noise and found him at home after a seizure. Is supposed to take Kepra but frequently doesn't. She noted he fell and struck his head. He is post ictal and difficult to control. He has received several doses of sedation but is still combative and perseverating. He was intubated easily under etomidate sedation for a CT of the head which shows no bleed or contusion. History obtained from:: and Dr. Lock. Hospital Course Hospital Course: The patient was initially admitted to the intensive care unit. He was started on Keppra and he said no seizure activity since. He has a longstanding ulceration on his right leg that is likely venous stasis however there could be an ischemic component and pyoderma gangrenosum would also be a consideration. He has been stable since transferring from the ICU yesterday. We looked at his wound today. He should have ongoing care. He was seen at the wound care center in the past. It is probably worth rescheduling for an appointment. In addition he needs to be compliant with his seizure medicines as well. Physical Exam Vital Signs: Temp Pulse Resp BP Pulse Ox 98.6 F 91 16 165/89 H 93 09/04/19 07:37 09/04/19 07:56 09/04/19 07:56 09/04/19 07:37 09/04/19 07:56 Intake & Output 09/03/19 09/04/19 09/05/19 06:59 06:59 06:59 Intake Total 2800 920 Output Total 1765 1790 Balance 1035 -870 Weight 105 kg 101.9 kg General appearance: PRESENT: no acute distress Head exam: PRESENT: atraumatic, normocephalic Respiratory exam: PRESENT: clear to auscultation fitz, symmetrical, unlabored. ABSENT: rales, rhonchi, tachypnea, wheezes Cardiovascular exam: PRESENT: RRR, +S1, +S2 GI/Abdominal exam: PRESENT: normal bowel sounds, soft. ABSENT: distended, guarding, tenderness Rectal exam: PRESENT: deferred Extremities exam: PRESENT: +1 edema, other - Very large ulceration affecting the sterile lateral lower leg. There appears to be a combination of beefy red granulation tissue and slough. Exam was limited because the Xeroform had dried to the wound surface. We are awaiting lidocaine solution to apply and loosen the dressing as well as numbing the surface of the wound. Musculoskeletal exam: PRESENT: ambulatory Neurological exam: PRESENT: alert, awake, oriented to person, oriented to place, oriented to time, oriented to situation, CN II-XII grossly intact Psychiatric exam: PRESENT: appropriate affect. ABSENT: agitated, anxious Skin exam: PRESENT: other - Ulceration as above Results Laboratory Results: WBC 11.7 10^3/uL (4.0-10.5) H 09/03/19 04:06 RBC 3.88 10^6/uL (4.35-5.55) L 09/03/19 04:06 Hgb 10.1 g/dL (13.5-17.0) L 09/03/19 04:06 Hct 31.7 % (37.9-51.0) L 09/03/19 04:06 MCV 82 fl (80-97) 09/03/19 04:06 MCH 26.0 pg (27.0-33.4) L 09/03/19 04:06 MCHC 31.9 g/dL (32.0-36.0) L 09/03/19 04:06 RDW 16.2 % (11.5-14.0) H 09/03/19 04:06 Plt Count 474 10^3/uL (150-450) H 09/03/19 04:06 Lymph % (Auto) 16.7 % (13-45) 09/03/19 04:06 [place] % (Auto) 6.1 % (3-13) 09/03/19 04:06 Eos % (Auto) 0.5 % (0-6) 09/03/19 04:06 Baso % (Auto) 0.6 % (0-2) 09/03/19 04:06 Absolute Neuts (auto) 8.9 10^3/uL (1.7-8.2) H 09/03/19 04:06 Absolute Lymphs (auto) 2.0 10^3/uL (0.5-4.7) 09/03/19 04:06 Absolute Monos (auto) 0.7 10^3/uL (0.1-1.4) 09/03/19 04:06 Absolute Eos (auto) 0.1 10^3/uL (0.0-0.6) 09/03/19 04:06 Absolute Basos (auto) 0.1 10^3/uL (0.0-0.2) 09/03/19 04:06 Seg Neutrophils % 76.1 % (42-78) 09/03/19 04:06 Carbonic Acid 1.19 mmol/L (1.05-1.35) 09/01/19 20:05 HCO3/H2CO3 Ratio 23:1 09/01/19 20:05 ABG pH 7.47 (7.35-7.45) H 09/01/19 20:05 ABG pCO2 39.7 mmHg (35-45) 09/01/19 20:05 ABG pO2 153.0 mmHg (80-100) H 09/01/19 20:05 ABG HCO3 28.0 mmol/L (20-24) H 09/01/19 20:05 ABG Total CO2 29.3 mmol/L (23-27) H 09/01/19 20:05 ABG O2 Saturation 99.1 % (94-98) H 09/01/19 20:05 ABG Base Excess 4.0 mmol/L 09/01/19 20:05 FiO2 40% 09/01/19 20:05 Sodium 141.0 mmol/L (137-145) 09/03/19 04:06 Potassium 3.4 mmol/L (3.6-5.0) L 09/03/19 04:06 Chloride 107 mmol/L (98-107) 09/03/19 04:06 Carbon Dioxide 24 mmol/L (22-30) 09/03/19 04:06 Anion Gap 10 (5-19) 09/03/19 04:06 BUN 7 mg/dL (7-20) 09/03/19 04:06 Creatinine 0.55 mg/dL (0.52-1.25) 09/03/19 04:06 Est GFR ( Amer) > 60 (>60) 09/03/19 04:06 Est GFR (Non-Af Amer) Cancelled 09/02/19 04:58 Est GFR (MDRD) Non-Af > 60 (>60) 09/03/19 04:06 Glucose 106 mg/dL (75-110) 09/03/19 04:06 POC Glucose 125 mg/dL (70-110) H 09/03/19 05:28 Lactic Acid 1.5 mmol/L (0.7-2.1) 09/01/19 13:14 Calcium 8.4 mg/dL (8.4-10.2) 09/03/19 04:06 Phosphorus 3.3 mg/dL (2.5-4.5) 09/03/19 04:06 Magnesium 2.4 mg/dL (1.6-2.3) H 09/03/19 04:06 Total Bilirubin 0.1 mg/dL (0.2-1.3) L 09/01/19 10:13 Direct Bilirubin 0.0 mg/dL (0.0-0.4) 09/01/19 10:13 Neonat Total Bilirubin Not Reportable 09/01/19 10:13 Neonat Direct Bilirubin Not Reportable 09/01/19 10:13 Neonat Indirect Bili Not Reportable 09/01/19 10:13 AST 18 U/L (17-59) 09/01/19 10:13 ALT 10 U/L (<50) 09/01/19 10:13 Alkaline Phosphatase 79 U/L (38-126) 09/01/19 10:13 Creatine Kinase 448 U/L (55-170) H 09/01/19 22:00 Total Protein 6.4 g/dL (6.3-8.2) 09/01/19 10:13 Albumin 3.2 g/dL (3.5-5.0) L 09/01/19 10:13 EGFR Cancelled 09/02/19 04:58 Urine Color YELLOW 09/02/19 06:40 Urine Appearance CLEAR 09/02/19 06:40 Urine pH 6.0 (5.0-9.0) 09/02/19 06:40 Ur Specific [place] 1.019 09/02/19 06:40 Urine Protein 30 mg/dL (NEGATIVE) H 09/02/19 06:40 Urine Glucose (UA) NEGATIVE mg/dL (NEGATIVE) 09/02/19 06:40 Urine Ketones NEGATIVE mg/dL (NEGATIVE) 09/02/19 06:40 Urine Blood NEGATIVE (NEGATIVE) 09/02/19 06:40 Urine Nitrite NEGATIVE (NEGATIVE) 09/02/19 06:40 Urine Bilirubin NEGATIVE (NEGATIVE) 09/02/19 06:40 Urine Urobilinogen NEGATIVE mg/dL (<2.0) 09/02/19 06:40 Ur Leukocyte Esterase TRACE (NEGATIVE) H 09/02/19 06:40 Urine WBC (Auto) 7 /HPF 09/02/19 06:40 Urine RBC (Auto) 2 /HPF 09/02/19 06:40 Squamous Epi Cells Auto <1 /HPF 09/02/19 06:40 Urine Mucus (Auto) RARE /LPF 09/02/19 06:40 Urine Ascorbic Acid 20 (NEGATIVE) H 09/02/19 06:40 Impressions: Head CT 09/01/19 10:29 IMPRESSION: NORMAL BRAIN CT WITHOUT CONTRAST. EVIDENCE OF ACUTE STROKE: NO. Chest X-Ray 09/01/19 14:04 IMPRESSION: Endotracheal tube low, about a cm above the costa. Nasogastric tube tip and side port in the stomach No focal infiltrates Plan Health Concerns: Significant history of noncompliance. Nonhealing wound (chronic for 5 years) Plan of Treatment: Continue Keppra. The patient also has discussed right leg amputation. Based on the position of the ulcer might be able to have a below-knee amputation. If the top of the ulceration is too close to the popliteal fossa the knee would need an above-knee amputation as a skin graft in the weightbearing surface of the stump breakdown quite easily. Goals: Continued compliance of medications. Resolution of leg ulcer. Time Spent: Greater than 30 Minutes Stroke Is this a Stroke Patient?: No Acute Heart Failure - Is this a Heart Failure Patient?: No
[2019-09-04] MEDS ORDERED: LOSARTAN POTASSIUM 50 MG TABLET PO SCH (11:00)
[2019-09-04] MEDS ORDERED: FLUTICASONE/VILANTEROL 100-25 MCG/DOSE IH SCH (12:00)
[2019-09-04] MEDS ORDERED: LIDOCAINE 4% TOPICAL SOLN 50 ML TOP ONE (12:00)
[2019-09-04 15:15] VITALS: BP 158/81
== END 2019-09-04 15:50 | disposition home health service (06) | DRG 100 ==
LOC: ER 09:57 → EH 14:47 → ICU 17:10 → 4N 09-03 17:16
PROVIDERS: ADMIT Hospitalist; ATTEND Hospitalist
PROC: 5A1945Z Respiratory Ventilation, 24-96 Consecutive Hours (ICD-10-PCS; principal; 2019-09-01)
PROC: 0BH17EZ Insertion of Endotracheal Airway into Trachea, Via Natural or Artificial Opening (ICD-10-PCS; 2019-09-01)
DX: G40.909 Epilepsy, unspecified, not intractable, without status epilepticus (principal); J96.01 Acute respiratory failure with hypoxia; L88 Pyoderma gangrenosum; L97.919 Non-pressure chronic ulcer of unspecified part of right lower leg with unspecified severity; L03.115 Cellulitis of right lower limb; I87.8 Other specified disorders of veins; E78.5 Hyperlipidemia, unspecified; I11.0 Hypertensive heart disease with heart failure; I50.9 Heart failure, unspecified; J44.9 Chronic obstructive pulmonary disease, unspecified; K21.9 Gastro-esophageal reflux disease without esophagitis; F32.9 Major depressive disorder, single episode, unspecified; F91.8 Other conduct disorders; G89.29 Other chronic pain; M54.5 Low back pain; R21 Rash and other nonspecific skin eruption; D64.9 Anemia, unspecified; I45.19 Other right bundle-branch block; E78.00 Pure hypercholesterolemia, unspecified; S00.81XA Abrasion of other part of head, initial encounter; X58.XXXA Exposure to other specified factors, initial encounter; Z79.899 Other long term (current) drug therapy; Z88.3 Allergy status to other anti-infective agents; Z88.0 Allergy status to penicillin; Z88.2 Allergy status to sulfonamides; Z88.8 Allergy status to other drugs, medicaments and biological substances; Z91.14 Patient's other noncompliance with medication regimen; Z79.891 Long term (current) use of opiate analgesic; Z78.1 Physical restraint status
CPT/HCPCS: 36415; 51702; 70450; 71045; 80048; 80053; 81001; 82550; 82803; 82962; 83605; 83735; 84100; 85025; 87040; 93005; 93010; 94002; 94003; 94640; 94799; 96365; 96375; 96376; 99291; 99292; C9113; J0330; J0696; J1170; J1630; J1650; J1953; J2060; J2250; J2270; J2704; J3010; J3475; J3480; J3490; J7030; J7620; J7626

== ENCOUNTER → 2019-10-02 | Outpatient (CLI) | payer MEDICARE ==
--- NOTE | 2019-10-03 08:33 | RADIOLOGY REPORT (SQ) ---
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 Additional selected spectral images recorded. ABIs recorded. LIMITATIONS: None. FINDINGS: RIGHT LEG: ABIS: 1.05 INFLOW ARTERIES: Normal, no obstruction evident. FEMORAL ARTERIES:Multiphasic waveforms. Normal, no velocity elevation to suggest focal stenosis. Norm al color Doppler evaluation. No aneurysm. POPLITEAL ARTERY:Multiphasic waveforms. Normal, no velocity elevation to suggest focal stenosis. Norm al color Doppler evaluation. No aneurysm. PATENT TIBIOPERONEAL TRUNK AND 3 VESSEL RUNOFF: Patent tibioperoneal trunk. Multiphasic waveforms. No high-grade stenosis. Limited visualization due to overlying bandage. TBI: Not performed. OTHER: No other significant finding. LEFT LEG: Spot evaluation of dorsalis pedis demonstrates triphasic waveforms. IMPRESSION: Normal ABIs. No high-grade stenosis. COMMENT: [facility] NORMAL: Greater than 1.0 MINIMAL DISEASE: 0.9 to 1.0 CLAUDICATION: 0.5 to 0.9 SEVERE ARTERIAL DISEASE: Less than 0.5 [facility] NORMAL: Greater than 1.0 (1.2 If Heavy Calcifications) NORMAL TO MILD ISCHEMIA: 0.8 to 1.0 MODERATE ISCHEMIA: 0.4 to 0.8 SEVERE ISCHEMIA: Less than 0.4 TECHNICAL DOCUMENTATION: JOB ID: [id number] 2010 [employer]- All Rights Reserved Reading location - IP/workstation name: [email or web address]
--- NOTE | 2019-10-03 08:33 | RADIOLOGY REPORT (SQ) ---
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 Additional selected spectral images recorded. ABIs recorded. LIMITATIONS: None. FINDINGS: RIGHT LEG: ABIS: 1.05 INFLOW ARTERIES: Normal, no obstruction evident. FEMORAL ARTERIES:Multiphasic waveforms. Normal, no velocity elevation to suggest focal stenosis. Norm al color Doppler evaluation. No aneurysm. POPLITEAL ARTERY:Multiphasic waveforms. Normal, no velocity elevation to suggest focal stenosis. Norm al color Doppler evaluation. No aneurysm. PATENT TIBIOPERONEAL TRUNK AND 3 VESSEL RUNOFF: Patent tibioperoneal trunk. Multiphasic waveforms. No high-grade stenosis. Limited visualization due to overlying bandage. TBI: Not performed. OTHER: No other significant finding. LEFT LEG: Spot evaluation of dorsalis pedis demonstrates triphasic waveforms. IMPRESSION: Normal ABIs. No high-grade stenosis. COMMENT: [facility] NORMAL: Greater than 1.0 MINIMAL DISEASE: 0.9 to 1.0 CLAUDICATION: 0.5 to 0.9 SEVERE ARTERIAL DISEASE: Less than 0.5 [facility] NORMAL: Greater than 1.0 (1.2 If Heavy Calcifications) NORMAL TO MILD ISCHEMIA: 0.8 to 1.0 MODERATE ISCHEMIA: 0.4 to 0.8 SEVERE ISCHEMIA: Less than 0.4 TECHNICAL DOCUMENTATION: JOB ID: [id number] 2010 [employer]- All Rights Reserved Reading location - IP/workstation name: [email or web address]
== END ==
LOC: SP 15:08
PROVIDERS: ATTEND Nurse Practitioner Family
DX: L97.212 Non-pressure chronic ulcer of right calf with fat layer exposed (principal); I87.311 Chronic venous hypertension (idiopathic) with ulcer of right lower extremity
CPT/HCPCS: 93922; 93926

== ENCOUNTER → 2020-01-09 | Outpatient (CLI) | payer MEDICARE ==
[2020-01-09 14:37] LABS: ABSOLUTE EOSINOPHILS # (AUTO) 0.3 10^3/uL (0.0-0.6); ABSOLUTE LYMPHOCYTES (AUTO) 2.6 10^3/uL (0.5-4.7); ABSOLUTE MONOCYTES (AUTO) 0.6 10^3/uL (0.1-1.4); ABSOLUTE NEUT (AUTO) 5.5 10^3/uL (1.7-8.2); BASOPHILS % (AUTO) 0.2 % (0-2); EOSINOPHILS % (AUTO) 3.5 % (0-6); HEMATOCRIT 30.3 % (37.9-51.0); HEMOGLOBIN 9.7 g/dL (13.5-17.0); MEAN CORPUSCULAR HEMOGLOBIN 23.2 pg (27.0-33.4); MEAN CORPUSCULAR HGB CONC 32.1 g/dL (32.0-36.0); MEAN CORPUSCULAR VOLUME 72 fl (80-97); MONOCYTES % (AUTO) 6.8 % (3-13); PLATELET COUNT 406 10^3/uL (150-450); RED BLOOD COUNT 4.19 10^6/uL (4.35-5.55); RED CELL DISTRIBUTION WIDTH 18.1 % (11.5-14.0); SEGMENTED NEUTROPHILS % (AUTO) 60.5 % (42-78); TOTAL CELLS COUNTED % (AUTO) 100 %
--- NOTE | 2020-01-09 14:50 | RADIOLOGY REPORT (SQ) ---
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 NUMBER OF VIEWS: Two views. TECHNIQUE: Two radiographic images acquired of the right tibia and fibula to include the knee and an kle in at least one projection. LIMITATIONS: None. FINDINGS: MINERALIZATION: Normal. BONES: No evidence of osteomyelitis. SOFT TISSUES: No obvious swelling or foreign body. OTHER: No other significant finding. IMPRESSION: There is no evidence of osteomyelitis. TECHNICAL DOCUMENTATION: JOB ID: [id number] 2010 [employer]- All Rights Reserved Reading location - IP/workstation name: [email or web address]
[2020-01-09 15:08] LABS: ALBUMIN 4.1 g/dL (3.5-5.0); ALKALINE PHOSPHATASE 111 U/L (38-126); ANION GAP 11 (5-19); ASPARTATE AMINO TRANSFERASE 22 U/L (17-59); BILIRUBIN,DIRECT 0.3 mg/dL (0.0-0.4); BILIRUBIN,TOTAL 0.3 mg/dL (0.2-1.3); BLOOD UREA NITROGEN 13 mg/dL (7-20); C-REACTIVE PROTEIN 14.2 mg/L (<10.0); CALCIUM 9.3 mg/dL (8.4-10.2); CARBON DIOXIDE 28 mmol/L (22-30); CHLORIDE 102 mmol/L (98-107); GLUCOSE 88 mg/dL (75-110); POTASSIUM 4.7 mmol/L (3.6-5.0); TOTAL PROTEIN 7.4 g/dL (6.3-8.2)
[2020-01-09 15:26] LABS: ERYTHROCYTE SEDIMENTATION RATE 33 mm/hr (0-20)
== END ==
LOC: WC 13:38
PROVIDERS: ATTEND Nurse Practitioner Family
DX: I87.311 Chronic venous hypertension (idiopathic) with ulcer of right lower extremity (principal); L97.212 Non-pressure chronic ulcer of right calf with fat layer exposed
CPT/HCPCS: 36415; 80053; 85025; 85652; 86140

== ENCOUNTER → 2020-02-06 | Outpatient (CLI) | payer MEDICARE ==
--- NOTE | 2020-02-06 19:02 | EKG REPORT ---
SEVERITY:- ABNORMAL ECG - SINUS RHYTHM RIGHT BUNDLE BRANCH BLOCK : Confirmed by: Jb Bedoya MD 06-Feb-2020 19:02:05
== END ==
LOC: OD 15:11
PROVIDERS: ATTEND Physician Assistant
DX: G89.4 Chronic pain syndrome (principal); Z79.891 Long term (current) use of opiate analgesic
CPT/HCPCS: 93005; 36415; 93010; G0480; 80358